=== PATIENT | male | born 1960 | race African-American/Black ===

== ENCOUNTER 2017-12-16 10:57 | Emergency (ER) | payer MEDICAID, OTHER ==
[~2017-12-16] VITALS: Ht 175.3 cm; Wt 90.7 kg
[~2017-12-16 10:57] MED LIST: CLINDAMYCIN HC300 MG ORAL; IBUPROFEN600 MG ORAL; NKM
[2017-12-16] MEDS ORDERED: CLINDAMYCIN HC300 MG ORAL ×2 (11:23→11:40)
[2017-12-16 11:25] VITALS: BP 155/79
--- NOTE | 2017-12-19 00:56 | Emergency Room Report ---
History of Present Illness General Chief Complaint: Skin Rash/Abscess Source: Patient Present Illness HPI Patient presents with complaints of tenderness to the left buttock area Possible insect bite Reports he felt the area 2 days ago Denies any fevers denies any discharge Denies any chest pain or shortness of breath Reports that the last time he had that He was able to get better with antibiotics Denies any rectal pain Allergies: Coded Allergies: PENICILLINS (Verified Allergy, Unknown, 10/23/15) Patient History Past Medical History: see triage record Pertinent Family History: none Reviewed Nursing Documentation: PMH: Agreed; PSxH: Agreed Nursing Documentation-PMH Past Medical History: No Stated History Review of Systems All Other Systems: negative except mentioned in HPI Physical Exam Vital Signs Date Time Temp Pulse Resp B/P (MAP) Pulse Ox O2 Delivery O2 Flow Rate FiO2 12/16/17 11:04 98.0 88 20 155/79 99 Room Air 98.1 Sp02 EP Interpretation: reviewed, normal General Appearance: well appearing, no apparent distress Head: normocephalic, atraumatic Eyes: bilateral eye PERRL, bilateral eye EOMI ENT: normal pharynx Respiratory: lungs clear Cardiovascular #1: regular rate, rhythm, no edema Gastrointestinal: non tender, soft Musculoskeletal: normal inspection Neurologic: alert, oriented x3 Skin: other - Small area approximately 1 cm x 1 cm mild erythema, no obvious blister no fluctuance Lymphatic: no adenopathy Medical Decision Making Diagnostic Impression: Primary Impression: insect bite Additional Impression: cellulitis ER Course Patient presents with early signs of cellulitis Possible ingrown hair versus insect bite, versus other source of infection Patient does not have any area for incision at this time and will have initial conservative trial on antibiotics Last Vital Signs Date Time Temp Pulse Resp B/P (MAP) Pulse Ox O2 Delivery O2 Flow Rate FiO2 12/16/17 11:25 98.1 88 20 155/79 99 Room Air 98.1 Status: improved Disposition: HOME, SELF-CARE Condition: Stable Scripts Clindamycin Hcl (CLINDAMYCIN HCL) 300 Mg Capsule 300 MG ORAL THREE TIMES A DAY, #30 CAP Prov: Jacque John DO 12/16/17 Clindamycin Hcl (CLINDAMYCIN HCL) 300 Mg Capsule 300 MG ORAL THREE TIMES A DAY, #30 CAP Prov: Jacque John DO 12/16/17 Referrals: NOT CHOSEN IPA/MD,REFERRING Patient Instructions: Cellulitis, [id number], Insect Bite, [id number] Additional Instructions: Patient is provided with the discharge instructions notified to follow up with primary doctor in the next 2-3 days otherwise return to the er with any worsening symptoms. Please note that this report is being documented using DRAGON technology. This can lead to erroneous entry secondary to incorrect interpretation by the dictating instrument. Jacque John DO December 19, 2017 00:56
== END 2017-12-16 11:26 | disposition home or self-care (01) ==
LOC: EMR 11:25
DX: S30.860A Insect bite (nonvenomous) of lower back and pelvis, initial encounter (principal); L03.317 Cellulitis of buttock; W57.XXXA Bitten or stung by nonvenomous insect and other nonvenomous arthropods, initial encounter; Y92.9 Unspecified place or not applicable; Z88.0 Allergy status to penicillin
CPT/HCPCS: 99283

== ENCOUNTER 2018-09-04 14:55 | Emergency (ER) | payer MEDICAID ==
[~2018-09-04] VITALS: Ht 175.3 cm; Wt 90.7 kg
[2018-09-04 15:02] VITALS: BP 157/76
--- NOTE | 2018-09-04 15:08 | NUR ---
ED Nurse Note: PT. AAOX4. AMBULATORY. PT. STATED HE HAS A SPIDER BITE ON R ARM
[2018-09-04] MEDS ORDERED: HYDROCORTISONE30 G2 TP (15:25)
[2018-09-04] MEDS ORDERED: BACITRACIN-P28.35 GM TP (15:25)
--- NOTE | 2018-09-04 15:25 | Emergency Room Report ---
History of Present Illness General Chief Complaint: Skin Rash/Abscess Source: Patient Present Illness HPI 58-year-old male patient presents the ER complaining of spider bite on his right forearm. Reports is been present for the past few days. States he did not see the spider. Reports bite is pruritic. Reports it was bigger but has decreased in size. Reports has not applied any medication or taken any medication for relief of symptoms. Denies fever, chest pain, shortness breath, vomiting. Denies history of diabetes. Reports up-to-date on tetanus vaccination. Denies pain or bleeding from site of bite. Allergies: Coded Allergies: PENICILLINS (Verified Allergy, Unknown, 10/23/15) Patient History Past Medical History: see triage record Reviewed Nursing Documentation: PMH: Agreed; PSxH: Agreed Nursing Documentation-PMH Past Medical History: No Stated History Review of Systems All Other Systems: negative except mentioned in HPI Physical Exam Vital Signs Date Time Temp Pulse Resp B/P (MAP) Pulse Ox O2 Delivery O2 Flow Rate FiO2 09/04/18 15:02 98.2 85 16 157/76 97 Room Air Sp02 EP Interpretation: reviewed, normal General Appearance: well appearing, no apparent distress, alert, GCS 15, non- toxic Head: normocephalic, atraumatic Eyes: bilateral eye normal inspection, bilateral eye PERRL ENT: hearing grossly normal, normal pharynx, no angioedema, normal voice, uvula midline, moist mucus membranes Neck: full range of motion Respiratory: lungs clear, normal breath sounds, no rhonchi, no respiratory distress, no accessory muscle use, no wheezing, speaking full sentences Cardiovascular #1: regular rate, rhythm, no edema Psychiatric: mood/affect normal Skin: other - Right forearm: 4-5 mm circular erythematous macule, no surrounding erythema or edema, no target sign, no tenderness to palpation, no palpable mass, no fluctuance or induration, no bite ornelas Medical Decision Making PA Attestation Dr. Fleming is my supervising Physician whom patient management has been discussed with. Diagnostic Impression: Primary Impression: Bug bite ER Course Pt. presents to the ED c/o bug bite. Ddx considered but are not limited to atopic dermatitis, bug bite, urticaria, allergic reaction. Vital signs: are WNL, pt. is afebrile ER COURSE: Physical exam consistent with localized inflammation secondary to likely bug bite. Patient reports symptoms have already improved. Will provide patient with topical hydrocortisone for itching symptoms and topical antibiotic to prevent infection. No surrounding erythema or edema or signs consistent with cellulitis, does not require oral antibiotics at this time. No palpable mass requiring I&D. Do not scratch, apply cool compresses to affected area. Take Claritin during the day and Benadryl at night for itching symptoms. Followup [facility] PCP and request referral to derm. DISCHARGE: -Rx given for hydrocortisone cream. Do not apply to face or skin creases. -Rx given for Bacitracin At this time pt. is stable for d/c to home. Patient resting comfortably, in no acute distress, nontoxic appearing. Care plan and follow up instructions have been discussed with the patient prior to discharge. Patient provided with printed patient care instructions, and any necessary prescriptions. Patient instructed to follow-up with primary care provider in 3 - 5 days. Patient questions asked and answered. Patient reports understanding and agreement to treatment plan. ER precautions given. Patient instructed to return to ER immediately for any new or worsening of symptoms including but not limited to increasing SOB, persistent fever. - Please note that this Emergency Department Report was dictated using [employer] police lieutenant technology software, occasionally this can lead to erroneous entry secondary to interpretation by the dictation equipment. Last Vital Signs Date Time Temp Pulse Resp B/P (MAP) Pulse Ox O2 Delivery O2 Flow Rate FiO2 09/04/18 15:02 98.2 85 16 157/76 97 09/04/18 15:02 Room Air Status: improved Disposition: HOME, SELF-CARE Condition: Stable Scripts Hydrocortisone (Hydrocortisone Cream 2.5%) Y Cream.appl 1 APPLIC TP BID, #28 GM Prov: Ryne Guido 09/04/18 Bacitracin/Polymyxin B Sulfate (BACITRACIN-POLYMYXIN OINTMENT) 28.35 Gm Oint...g. 1 APPLIC TP BID, #28 GM Prov: Ryne Guido 09/04/18 Patient Instructions: Insect Bite, [id number] Additional Instructions: Followup with primary care provider in 3 -5 days. Request referral to dermatology as needed. Do not scratch or itch. Apply cool compresses to affected area. Take medications as directed. Do not apply topical steroid medication to face or skin creases. SE Benadryl drowsiness, do not take prior to drinking, driving, operating heavy machinery. Take Claritin during the day and Benadryl at night for itching symptoms. Patient questions asked and answered. ER precautions given, patient instructed to return to ER immediately for any new or worsening of symptoms. [facility] [place] [facility] Ryne Guido Sep 04, 2018 15:25
[2018-09-04 15:31] VITALS: BP 157/76
--- NOTE | 2018-09-04 15:31 | NUR ---
ED Nurse Note: Pt is ready to be discharged by ERMD. Discharge paper and prescription given, mother verbalized understanding of discharge instruction. AOx4, VSS. Wristband removed. Pt ambulated out with steady gait with all belongings.
== END 2018-09-04 15:31 | disposition home or self-care (01) ==
LOC: EMR 15:20
DX: S50.861A Insect bite (nonvenomous) of right forearm, initial encounter (principal); W57.XXXA Bitten or stung by nonvenomous insect and other nonvenomous arthropods, initial encounter; Y92.9 Unspecified place or not applicable; Z88.0 Allergy status to penicillin
CPT/HCPCS: 99282

== ENCOUNTER 2019-09-15 16:25 | Emergency (ER) | payer MEDICAID ==
[~2019-09-15] VITALS: Ht 175.3 cm; Wt 90.7 kg
[~2019-09-15 16:25] MED LIST changes: +BACITRACIN-P28.35 GM TP; +HYDROCORTISONE30 G2 TP
--- NOTE | 2019-09-15 16:34 | NUR ---
ED Nurse Note: Pt ambulated to ed c/o cough and green thick phlegm with nasal congestion. pt denies use of medications prior to arrival. pt denies pain. pt shows NAD.
[2019-09-15 16:35] VITALS: BP 162/85
--- NOTE | 2019-09-15 16:45 | NUR ---
ED Nurse Note: iv access established. blood and urine collected; sent down to lab. rt at bedside for breathing tx. ekg done at bedside by ertech.
[2019-09-15] MEDS ORDERED: Albuterol/Ipratropium 3ml neb ONE (16:48)
[2019-09-15] MEDS: Albuterol/Ipratropium 3ml neb HHN SCH ×2 (16:57→16:58)
[2019-09-15 17:04] LABS: BASOPHILS % (AUTO) 3.1 % (0.0-2.0); EOSINOPHILS % (AUTO) 3.5 % (0.0-3.0); HEMATOCRIT 48.9 % (42.0-52.0); HEMOGLOBIN 15.6 G/DL (14.2-18.0); LYMPHOCYTES % (AUTO) 36.8 % (20.0-45.0); MEAN CORPUSCULAR VOLUME 91 FL (80-99); MONOCYTES % (AUTO) 8.5 % (1.0-10.0); NEUTROPHILS % (AUTO) 48.1 % (45.0-75.0); PLATELET COUNT 297 K/UL (150-450); RED BLOOD COUNT 5.36 M/UL (4.70-6.10); RED CELL DISTRIBUTION WIDTH 12.6 % (11.6-14.8); WHITE BLOOD COUNT 6.4 K/UL (4.8-10.8)
[2019-09-15 17:45] LABS: ANION GAP 11 mmol/L (5-15); BLOOD UREA NITROGEN 15 mg/dL (7-18); CALCIUM 9.7 MG/DL (8.5-10.1); CARBON DIOXIDE 28 MMOL/L (21-32); CHLORIDE 103 MMOL/L (98-107); CREATININE 1.1 MG/DL (0.55-1.30); POTASSIUM 3.8 MMOL/L (3.5-5.1); SODIUM 142 MMOL/L (136-145)
[2019-09-15 17:54] LABS: ALANINE AMINOTRANSFERASE 35 U/L (12-78); ALBUMIN 4.6 G/DL (3.4-5.0); ALBUMIN/GLOBULIN RATIO 1.1 (1.0-2.7); ALKALINE PHOSPHATASE 53 U/L (46-116); ASPARTATE AMINO TRANSFERASE 22 U/L (15-37); BILIRUBIN,TOTAL 0.3 MG/DL (0.2-1.0)
--- NOTE | 2019-09-15 18:01 | Emergency Room Report ---
History of Present Illness General Chief Complaint: Upper Respiratory Illness Source: Patient Present Illness HPI 59-year-old male with no significant past medical history here complaining of 2 days of cough, posttussive chest pain and shortness of breath. Complains of green phlegm. Denies fever and chill, history of asthma COPD. Denies tobacco smoke. Denies history of hypertension however presents with elevated blood pressure. Denies headache and dizziness at this time. Denies blurry vision, and no unilateral or generalized weakness noted. Patient speaking full sentences no slurred speech noted. Vital signs otherwise are within normal limits. Denies abdominal pain, nausea vomiting, recent travel. Has not taken medication for symptom relief. Allergies: Coded Allergies: PENICILLINS (Verified Allergy, Unknown, 10/23/15) Patient History Past Medical History: see triage record Past Surgical History: unable to obtain Pertinent Family History: none Immunizations: UTD Reviewed Nursing Documentation: PMH: Agreed; PSxH: Agreed Nursing Documentation-PMH Past Medical History: No Stated History Review of Systems All Other Systems: negative except mentioned in HPI Physical Exam Vital Signs Date Time Temp Pulse Resp B/P (MAP) Pulse Ox O2 Delivery O2 Flow Rate FiO2 09/15/19 16:28 98.4 79 21 162/85 (110) 96 Room Air 09/15/19 16:59 21 Sp02 EP Interpretation: reviewed, abnormal - Elevated blood pressure at 162/85 General Appearance: no apparent distress, alert, GCS 15, non-toxic Head: normocephalic, atraumatic Eyes: bilateral eye normal inspection, bilateral eye PERRL ENT: hearing grossly normal, normal pharynx, no angioedema, normal voice Neck: full range of motion, supple, thyroid normal, no meningismus, supple/symm /no masses Respiratory: chest non-tender, lungs clear, normal breath sounds, no rhonchi, no respiratory distress, no retraction, no wheezing, speaking full sentences Cardiovascular #1: regular rate, rhythm, no edema, no murmur Gastrointestinal: normal bowel sounds, non tender, soft, non-distended, no guarding, no rebound Rectal: deferred Musculoskeletal: back normal, no calf tenderness Neurologic: alert, motor strength/tone normal, oriented x3, sensory intact, responsive, speech normal Psychiatric: judgement/insight normal, memory normal, mood/affect normal, no suicidal/homicidal ideation Skin: no rash, warm/dry Lymphatic: no adenopathy Medical Decision Making PA Attestation Diagnosis and treatment plans were reviewed and discussed with my supervising physician Dr. Garces Diagnostic Impression: Primary Impression: Pneumonitis ER Course 59-year-old male with no significant past medical history here complaining of 2 days of cough, posttussive chest pain and shortness of breath. Complains of green phlegm. Denies fever and chill, history of asthma COPD. Denies tobacco smoke. Denies history of hypertension however presents with elevated blood pressure. Denies headache and dizziness at this time. Denies blurry vision, and no unilateral or generalized weakness noted. Patient speaking full sentences no slurred speech noted. Vital signs otherwise are within normal limits. Denies abdominal pain, nausea vomiting, recent travel. Has not taken medication for symptom relief. Ddx considered but are not limited to: AL, Angina, COPD, GERD, bronchitis, pneumonia, pneumonitis Vital signs: are WNL, pt. is afebrile H&PE are most consistent with pneumonitis ORDERS: EKG, Chest XR, BMP, troponin, CBC, CMP, tox screen, azithromycin, guaifenesin, albuterol ED INTERVENTIONS: 3 treatments of albuterol ipratropium nebulizer DISCHARGE: At this time pt. is stable for d/c to home. Will provide printed patient care instructions, and any necessary prescriptions. Care plan and follow up instructions have been discussed with the patient prior to discharge. Patient to follow primary care provider, take medication as directed, avoid using marijuana, if worsening symptoms return to the emergency room EKG Diagnostic Results Rate: normal Rhythm: NSR ST Segments: no acute changes Other Impression No acute ST changes, no QT prolongation noted Chest X-Ray Diagnostic Results Chest X-Ray Diagnostic Results : Chest X-Ray Ordered: Yes # of Views/Limited/Complete: 1 View Indication: Other - Cough EP Interpretation: Yes PA Xray: Interpretation reviewed, by supervising MD, and agrees with findings. Interpretation: no consolidation, no effusion, no pneumothorax Impression: No acute disease Electronically Signed by: Belinda Franklin PA-C Last Vital Signs Date Time Temp Pulse Resp B/P (MAP) Pulse Ox O2 Delivery O2 Flow Rate FiO2 09/15/19 16:59 78 18 100 Room Air 21 76 18 96 09/15/19 16:35 98.4 162/85 Status: improved Disposition: HOME, SELF-CARE Condition: Stable Scripts Albuterol Sulfate (VENTOLIN HFA) 18 Gm Hfa.aer.ad 2 PUFFS INH EVERY 6 HOURS, #18 GM 0 Refills Prov: Belinda Rock 09/15/19 Guaifenesin* (GUAIFENESIN*) 100 Mg/5 Ml Liquid 5 ML ORAL Q6H, #120 ML 0 Refills Prov: Beilnda Rock 09/15/19 Azithromycin* (ZITHROMAX*) 250 Mg Tablet 250 MG ORAL DAILY, #6 TAB 0 Refills Take two tables once daily for 1 day, then one tablet once daily for 4 days. Prov: Belinda Rock 09/15/19 Referrals: [facility],REFERRING (PCP) Patient Instructions: Pneumonitis Additional Instructions: Take medication as directed, follow-up with your primary care provider, increase oral hydration, if worsening symptoms return to the emergency room Belinda Rock Sep 15, 2019 18:01
[2019-09-15] MEDS ORDERED: GUAIFENESI100 MG/5 M ORAL (18:02)
[2019-09-15] MEDS ORDERED: ZITHROMAX250 MG ORAL (18:02)
[2019-09-15] MEDS ORDERED: VENTOLIN HFA18 GM INH (18:02)
[2019-09-15 18:11] VITALS: BP 153/76
--- NOTE | 2019-09-15 18:11 | NUR ---
ER DISCHARGE NOTE: Patient is cleared to be discharged per ERMD, pt is aox4, on room air, with stable vital signs. pt was given dc and prescription instructions, pt was able to verbalize understanding, pt id band and iv site removed without complications. pt is able to ambulate with steady gait. pt took all belongings.
--- NOTE | 2019-11-02 09:57 | Diagnostic Imaging Report ---
Indication: Dyspnea Comparison: None A single view chest radiograph was obtained. Findings: Cardiomediastinal appearance is within normal limits for age. The lungs are clear. Pulmonary vascularity is appropriate. The diaphragmatic contour is smooth and costophrenic angles are sharp. No pleural effusions are identified. The bones are unremarkable. Impression: No acute findings
== END 2019-09-15 18:10 | disposition home or self-care (01) ==
LOC: EMR 17:22
DX: J18.9 Pneumonia, unspecified organism (principal); Z88.0 Allergy status to penicillin
CPT/HCPCS: 36415; 71045; 80053; 80307; 84484; 85025; 93005; Z7502; 99284; J7620

== ENCOUNTER 2019-09-29 15:49 | Emergency (ER) | payer MEDICAID ==
[~2019-09-29] VITALS: Ht 175.3 cm; Wt 99.8 kg
[~2019-09-29 15:49] MED LIST changes: +GUAIFENESI100 MG/5 M ORAL; +VENTOLIN HFA18 GM INH; +ZITHROMAX250 MG ORAL
[2019-09-29 16:23] VITALS: BP 161/79
--- NOTE | 2019-09-29 16:23 | NUR ---
ED Nurse Note: PT CAME IN FOR FF UP. PT C/O CONSISTENT COUGHING WITH LIGHT GREEN PHLEGM, CONGESTION AND CHILLS. SEEN HERE ON 09/15/2019 FOR SAME SYMPTOM.
[2019-09-29 17:31] LABS: APPEARANCE,URINE CLEAR; BILIRUBIN, URINE NEGATIVE (NEGATIVE); COLOR,URINE PALE YELLOW; GLUCOSE, URINE (UA) NEGATIVE (NEGATIVE); KETONES,URINE NEGATIVE (NEGATIVE); LEUKOCYTE ESTERASE ,URINE NEGATIVE (NEGATIVE); NITRITE,URINE NEGATIVE (NEGATIVE); PH,URINE 6 (4.5-8.0); PROTEIN,URINE NEGATIVE (NEGATIVE); UROBILINOGEN,URINE NORMAL MG/DL (0.0-1.0)
[2019-09-29 18:21] VITALS: BP 155/74
--- NOTE | 2019-09-29 18:35 | Emergency Room Report ---
History of Present Illness General Chief Complaint: Upper Respiratory Illness Source: Patient Present Illness HPI 59 YO male presents c/o intermittent cough with mucus that is worse at night and in the am. x 2 weeks. pt. was seen here last week and completed a course of oral abx with cough syrup and Mucinex. pt. reports he continues to have intermittent sx's. He reports foul taste in mouth /odor. He states will have a ST that is 4/10 in severity here and there. Denies nasal congestion. He denies having pain, fever or chills. He denies hx of GERD. Denies SOB, Dyspnea, swelling of the LE's, CP, or palpitations. He denies cardiac hx or hx of CHF. He is also reporting "weird pinching sensation intermittently in the penis x 3 days." denies dysuria, denies abdominal pain or tenderness. He denies penile d/c , suspicion of STI or genital rashes/ lesions. He denies testicular pain or swelling. He denies urinary frequency , urgency or hematuria. Allergies: Coded Allergies: PENICILLINS (Verified Allergy, Unknown, 10/23/15) Patient History Past Medical History: see triage record Past Surgical History: none Pertinent Family History: none Reviewed Nursing Documentation: PMH: Agreed; PSxH: Agreed Nursing Documentation-PMH Past Medical History: No Stated History Review of Systems All Other Systems: negative except mentioned in HPI Physical Exam Vital Signs Date Time Temp Pulse Resp B/P (MAP) Pulse Ox O2 Delivery O2 Flow Rate FiO2 09/29/19 16:17 98.6 89 15 161/79 (106) 98 Room Air Sp02 EP Interpretation: reviewed, normal General Appearance: no apparent distress, alert, GCS 15, non-toxic Head: normocephalic, atraumatic Eyes: bilateral eye normal inspection, bilateral eye PERRL ENT: hearing grossly normal, normal voice Neck: full range of motion Respiratory: chest non-tender, lungs clear, normal breath sounds, no respiratory distress, no wheezing, speaking full sentences Cardiovascular #1: regular rate, rhythm, no edema Gastrointestinal: non tender, soft Genitourinary: normal inspection, no CVA tenderness Musculoskeletal: normal range of motion, gait/station normal, non-tender Neurologic: alert, oriented x3, sensory intact, responsive, speech normal Psychiatric: judgement/insight normal Skin: normal color, normal inspection Medical Decision Making PA Attestation Dr. Jiménez is my supervising Physician whom patient management has been discussed with. Diagnostic Impression: Primary Impression: Chronic coughing Additional Impression: UTI (urinary tract infection) Qualified Codes: N30.00 - Acute cystitis without hematuria ER Course 59 YO male presents c/o intermittent cough with mucus that is worse at night and in the am. x 2 weeks. pt. was seen here last week and completed a course of oral abx with cough syrup and Mucinex. pt. reports he continues to have intermittent sx's. He reports foul taste in mouth /odor. He states will have a ST that is 4/10 in severity here and there. Denies nasal congestion. He denies fever or chills. He denies hx of GERD. Denies SOB, Dyspnea, swelling of the LE's , CP, or palpitations. He denies cardiac hx or hx of CHF. He is also reporting "weird pinching sensation intermittently in the penis x 3 days." denies dysuria , denies abdominal pain or tenderness. He denies penile d/c, suspicion of STI or genital rashes/ lesions. He denies testicular pain or swelling. He denies urinary frequency , urgency or hematuria. Ddx considered but are not limited to URI, pneumonia, PE, strep pharyngitis, meningitis, bronchitis, acid reflux, CHF, postnasal drainage, UTI/urethritis, or candidiasis just to name a few Vital signs: Pt. is afebrile, the remaining VS are WNL H&PE are most consistent with Persistent Cough- no meningeal signs, oropharynx is not involved, no evidence of bacterial infection at this time. -Patient also already finished outpatient course of antibiotics. Will do urinalysis and check for UTI. ORDERS: -UA: Positive for presence of bacteria/ UTI ED INTERVENTIONS: None required at this time. --PT. EDUCATION: Discussed signs and symptoms to indicate viral illness versus bacterial illness. Also, d/w pt. other causes of chronic cough that is worse at night and in the morning with mucus production being postnasal drainage as well as acid reflux. DISCHARGE: At this time pt. is stable for d/c to home. Will provide printed patient care instructions, and any necessary prescriptions. Care plan and follow up instructions have been discussed with the patient prior to discharge. Labs Test 09/29/19 16:56 Urine Color Pale yellow Urine Appearance Clear Urine pH 6 (4.5-8.0) Urine Specific [place] 1.010 (1.005-1.035) Urine Protein Negative (NEGATIVE) Urine Glucose (UA) Negative (NEGATIVE) Urine Ketones Negative (NEGATIVE) Urine Blood Negative (NEGATIVE) Urine Nitrite Negative (NEGATIVE) Urine Bilirubin Negative (NEGATIVE) Urine Urobilinogen Normal MG/DL (0.0-1.0) Urine Leukocyte Esterase Negative (NEGATIVE) Urine RBC 0-2 /HPF (0 - 0) Urine WBC 0-2 /HPF (0 - 0) Urine Squamous Epithelial Cells None /LPF (NONE/OCC) Urine Bacteria Occasional /HPF (NONE) Last Vital Signs Date Time Temp Pulse Resp B/P (MAP) Pulse Ox O2 Delivery O2 Flow Rate FiO2 09/29/19 18:21 98.4 92 19 155/74 100 Room Air Disposition: HOME, SELF-CARE Condition: Stable Scripts Loratadine/Pseudoephedrine (ALAVERT D-12 ALLERGY-SINUS TAB) 1 Each Tab.er.12h 1 TAB ORAL TWICE A DAY for 7 Days, #14 TAB Prov: Capri Reaves 09/29/19 Famotidine* (Pepcid 20mg tablet*) 20 Mg Tablet 20 MG ORAL TWICE A DAY for 10 Days, #20 TAB 0 Refills Prov: Capri Reaves 09/29/19 Phenazopyridine Hcl* (PYRIDIUM*) 200 Mg Tablet 200 MG ORAL THREE TIMES A DAY for 3 Days, #9 TAB 0 Refills Prov: Capri Reaves 09/29/19 Cephalexin* (KEFLEX*) 500 Mg Capsule 500 MG ORAL EVERY 12 HOURS for 7 Days, #14 CAP 0 Refills Prov: Capri Reaves 09/29/19 Patient Instructions: Cough, Adult, [id number], Food Choices for Gastroesophageal Reflux Disease, Adult Additional Instructions: ~ ~ An emergent medical condition has not been identified based on this patients presentation, exam and any necessary testing/imaging. The patient is determined to be stable for outpatient follow-up and management of symptoms by a primary care provider. Take medications as directed. Follow up with a Primary Care Provider in 3-5 days, especially if your symptoms have not resolved --Please review list of primary care clinics, if you do not already have a primary care provider Return sooner to ED if new symptoms occur, or current symptoms become worse. - Please note that this Emergency Department Report was dictated using [employer] indoor environmentalist technology software, occasionally this can lead to erroneous entry secondary to interpretation by the dictation equipment. Capri Reaves Sep 29, 2019 18:35
[2019-09-29] MEDS ORDERED: PHENAZOPYRIDIN200 MG ORAL (18:51)
[2019-09-29] MEDS ORDERED: FAMOTIDINE20 MG ORAL (18:51)
[2019-09-29] MEDS ORDERED: CEPHALEXIN500 MG ORAL (18:51)
[2019-09-29] MEDS ORDERED: ALAVERT D-12 A1 EACH ORAL (18:51)
[2019-09-29 18:57] VITALS: BP 147/79
--- NOTE | 2019-09-29 18:58 | NUR ---
ER DISCHARGE NOTE: Patient is cleared to be discharged per ERMD, pt is aox4, on room air, with stable vital signs. pt was given dc and prescription instructions, pt was able to verbalize understanding, pt id band removed. pt is able to ambulate with steady gait. pt took all belongings.
== END 2019-09-29 19:00 | disposition home or self-care (01) ==
LOC: EMR 18:57
DX: R05 Cough (principal); N30.00 Acute cystitis without hematuria; Z88.0 Allergy status to penicillin
CPT/HCPCS: 81001; Z7502; 99282

== ENCOUNTER 2020-06-21 18:04 | Inpatient (IN) | payer MEDICAID ==
[~2020-06-21] VITALS: Ht 175.3 cm; Wt 86.2 kg
[~2020-06-21 18:04] MED LIST changes: +ALAVERT D-12 A1 EACH ORAL; +CEPHALEXIN500 MG ORAL; +FAMOTIDINE20 MG ORAL; +PHENAZOPYRIDIN200 MG ORAL
[2020-06-21 18:11] VITALS: BP 155/98
--- NOTE | 2020-06-21 18:21 | NUR ---
ED Nurse Note: Patient from home and walked in due abd pain with N/V/D x 5 days with feeling of weakness and dizziness. Denies blood on stool. AAO x4, ambulatory with non labored breathing. Dr Gordon at the bed side.
[2020-06-21 18:40] LABS: APPEARANCE,URINE CLEAR; BILIRUBIN, URINE NEGATIVE (NEGATIVE); GLUCOSE, URINE (UA) NEGATIVE (NEGATIVE); KETONES,URINE 1+ (NEGATIVE); LEUKOCYTE ESTERASE ,URINE NEGATIVE (NEGATIVE); NITRITE,URINE NEGATIVE (NEGATIVE); PH,URINE 5 (4.5-8.0); PROTEIN,URINE 3+ (NEGATIVE); UROBILINOGEN,URINE NORMAL MG/DL (0.0-1.0)
[2020-06-21] MEDS ORDERED: Pantoprazole Inj IVP ONE (18:45)
--- NOTE | 2020-06-21 18:45 | Emergency Room Report ---
History of Present Illness General Chief Complaint: Abdominal Pain Source: Patient Present Illness HPI Patient is a 60-year-old male denies any significant past medical history who presents to the ER complaining of abdominal pain, nausea, vomiting and diarrhea for the past 4 to 5 days. Patient complains of bilateral upper abdominal pain. He complains of nonbloody nonbilious vomitus and nonbloody diarrhea. He denies any chest pain or shortness of breath. He denies any cough. He denies any fever or chills. He denies any recent travel or sick contacts. Allergies: Coded Allergies: PENICILLINS (Verified Allergy, Unknown, 10/23/15) COVID-19 Screening Contact w/high risk pt: No Experienced COVID-19 symptoms?: No COVID-19 Testing performed DIRECTOR OF PROPERTY MANAGEMENT: No Patient History Reviewed Nursing Documentation: PMH: Agreed; PSxH: Agreed Nursing Documentation-PM Past Medical History: No Stated History Review of Systems All Other Systems: negative except mentioned in HPI Physical Exam Vital Signs Date Time Temp Pulse Resp B/P (MAP) Pulse Ox O2 Delivery O2 Flow Rate FiO2 06/21/20 18:11 98.6 100 20 155/98 95 Room Air Sp02 EP Interpretation: reviewed, normal General Appearance: no apparent distress, alert, GCS 15, non-toxic Head: normocephalic, atraumatic Eyes: bilateral eye normal inspection, bilateral eye PERRL ENT: dry mucus membranes Neck: full range of motion, supple/symm/no masses Respiratory: chest non-tender, lungs clear, normal breath sounds, speaking full sentences Cardiovascular #1: tachycardia Gastrointestinal: other - Mild left upper quadrant and right upper quadrant tenderness to palpation with no guarding or rebound Rectal: deferred Genitourinary: no CVA tenderness Musculoskeletal: no calf tenderness, no lower extremity edema 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 Patient is mildly hypoxic. Patient's chest x-ray demonstrates bilateral pulmonary infiltrates. Patient started on azithromycin as well as ceftriaxone. Patient given Decadron 10 mg IV. Patient to be admitted for further treatment and evaluation. Laboratory Tests Test 06/21/20 18:25 06/21/20 18:40 06/21/20 19:13 White Blood Count 6.3 K/UL (4.8-10.8) Red Blood Count 5.18 M/UL (4.70-6.10) Hemoglobin 15.4 G/DL (14.2-18.0) Hematocrit 45.9 % (42.0-52.0) Mean Corpuscular Volume 89 FL (80-99) Mean Corpuscular Hemoglobin 29.7 PG (27.0-31.0) Mean Corpuscular Hemoglobin Concent 33.5 G/DL (32.0-36.0) Red Cell Distribution Width 12.3 % (11.6-14.8) Platelet Count 230 K/UL (150-450) Mean Platelet Volume 6.5 FL (6.5-10.1) Neutrophils (%) (Auto) 72.1 % (45.0-75.0) Lymphocytes (%) (Auto) 14.6 % (20.0-45.0) L Monocytes (%) (Auto) 10.1 % (1.0-10.0) H Eosinophils (%) (Auto) 0.2 % (0.0-3.0) Basophils (%) (Auto) 3.0 % (0.0-2.0) H Prothrombin Time 11.4 SEC (9.30-11.50) Prothrombin Time INR 1.0 (0.9-1.1) Activated Partial Thromboplast Time 32 SEC (23-33) D-Dimer 0.79 mg/L FEU (0.00-0.49) H Urine Color Yellow Urine Appearance Clear Urine pH 5 (4.5-8.0) Urine Specific [place] 1.020 (1.005-1.035) Urine Protein 3+ (NEGATIVE) H Urine Glucose (UA) Negative (NEGATIVE) Urine Ketones 1+ (NEGATIVE) H Urine Blood 1+ (NEGATIVE) H Urine Nitrite Negative (NEGATIVE) Urine Bilirubin Negative (NEGATIVE) Urine Urobilinogen Normal MG/DL (0.0-1.0) Urine Leukocyte Esterase Negative (NEGATIVE) Urine RBC 2-4 /HPF (0 - 0) H Urine WBC 0-2 /HPF (0 - 0) Urine Squamous Epithelial Cells Occasional /LPF Urine Bacteria Few /HPF (NONE) Urine Mucus Moderate /LPF (NONE/OCC) H Sodium Level 136 MMOL/L (136-145) Potassium Level 4.2 MMOL/L (3.5-5.1) Chloride Level 100 MMOL/L (98-107) Carbon Dioxide Level 28 MMOL/L (21-32) Anion Gap 8 mmol/L (5-15) Blood Urea Nitrogen 14 mg/dL (7-18) Creatinine 1.6 MG/DL (0.55-1.30) H Estimated Glomerular Filtration Rate 53.6 mL/min (>60) Glucose Level 139 MG/DL (74-106) H Calcium Level 8.6 MG/DL (8.5-10.1) Magnesium Level 2.3 MG/DL (1.8-2.4) Ferritin 515 NG/ML (8-388) H Total Bilirubin 0.5 MG/DL (0.2-1.0) Aspartate Amino Transferase (AST) 41 U/L (15-37) H Alanine Aminotransferase (ALT) 56 U/L (12-78) Alkaline Phosphatase 54 U/L (46-116) Lactate Dehydrogenase 553 U/L (81-234) H Troponin I 0.000 ng/mL (0.000-0.056) C-Reactive Protein, Quantitative 13.1 mg/dL (0.00-0.90) H Pro-B-Type Natriuretic Peptide 51 pg/mL (0-125) Total Protein 8.4 G/DL (6.4-8.2) H Albumin 3.6 G/DL (3.4-5.0) Globulin 4.8 g/dL Albumin/Globulin Ratio 0.8 (1.0-2.7) L Lipase 121 U/L (73-393) Urine Opiates Screen Negative (NEGATIVE) Urine Barbiturates Screen Negative (NEGATIVE) Phencyclidine (PCP) Screen Negative (NEGATIVE) Urine Amphetamines Screen Negative (NEGATIVE) Urine Benzodiazepines Screen Negative (NEGATIVE) Urine Cocaine Screen Negative (NEGATIVE) Urine Marijuana (THC) Screen Positive (NEGATIVE) H Lactic Acid Level 1.50 mmol/L (0.4-2.0) Arterial Blood pH 7.479 (7.350-7.450) Arterial Blood Partial Pressure CO2 29.6 mmHg (35.0-45.0) L Arterial Blood Partial Pressure O2 72.6 mmHg (75.0-100.0) L Arterial Blood HCO3 21.5 mmol/L (22.0-26.0) L Arterial Blood Oxygen Saturation 94.7 % (95-100) L Arterial Blood Base Excess -0.9 (-2-2) Brayden Test Positive Microbiology Date/Time Source Procedure Growth Status 06/21/20 15:49 Nasopharynx SARS-CoV-2 RdRp Gene Assay - Final Complete EKG Diagnostic Results Troponin ordered: Yes When was troponin ordered?: Jun 21, 2020 EKG Time: 18:35 EP Interpretation: Tawana Gordon MD Rate: normal - 95 bpm Rhythm: NSR ST Segments: no acute changes ASA given to the pt in ED: No Rhythm Strip Diag. Results Rhythm Strip Time: 20:45 EP Interpretation: yes - Tawana Gordon MD Rate: 94 bpm Rhythm: NSR, no PVC's, no ectopy Chest X-Ray Diagnostic Results Chest X-Ray Diagnostic Results : Chest X-Ray Ordered: Yes # of Views/Limited/Complete: 1 View Indication: Chest Pain EP Interpretation: Yes Interpretation: no effusion, no pneumothorax, other - biLateral patchy infiltrates Impression: Other - Pneumonia Last Vital Signs Date Time Temp Pulse Resp B/P (MAP) Pulse Ox O2 Delivery O2 Flow Rate FiO2 06/21/20 18:21 100 20 Room Air 06/21/20 18:11 98.6 155/98 (117) 95 Disposition: ADMITTED INPATIENT - telemetry Condition: Critical Additional Instructions: Please note that this report is being documented using [employer] technology. This can lead to erroneous entry secondary to incorrect interpretation by the dictating instrument. Tawana Gordon M.D. Jun 21, 2020 18:45
[2020-06-21 18:51] LABS: COLOR,URINE YELLOW; EOSINOPHILS % (AUTO) 0.2 % (0.0-3.0); HEMATOCRIT 45.9 % (42.0-52.0); HEMOGLOBIN 15.4 G/DL (14.2-18.0); LYMPHOCYTES % (AUTO) 14.6 % (20.0-45.0); MEAN CORPUSCULAR VOLUME 89 FL (80-99); MONOCYTES % (AUTO) 10.1 % (1.0-10.0); NEUTROPHILS % (AUTO) 72.1 % (45.0-75.0); PLATELET COUNT 230 K/UL (150-450); RED BLOOD COUNT 5.18 M/UL (4.70-6.10); RED CELL DISTRIBUTION WIDTH 12.3 % (11.6-14.8); WHITE BLOOD COUNT 6.3 K/UL (4.8-10.8)
[2020-06-21] MEDS ORDERED: Azithromycin 500 MG in NS 275 ML IV ONE (19:00)
[2020-06-21] MEDS ORDERED: cefTRIAXone 1 GM in NS 55 ML IVPB ONE (19:00)
[2020-06-21 19:03] LABS: CALCIUM 8.6 MG/DL (8.5-10.1); CREATININE 1.6 MG/DL (0.55-1.30); POTASSIUM 4.2 MMOL/L (3.5-5.1)
--- NOTE | 2020-06-21 19:07 | Diagnostic Imaging Report ---
EXAM: CT Abdomen and Pelvis Without Intravenous Contrast CLINICAL HISTORY: PAIN Notes: Patient walked in to ER c/o abd pain, vomiting x 5 days, stated feel so weak and dizzy TECHNIQUE: Axial computed tomography images of the abdomen and pelvis without intravenous contrast. CTDI is 11.0 mGy and DLP is 595.0 mGy-cm. One or more of the following dose reduction techniques were used: automated exposure control, adjustment of the mA and/or kV according to patient size, use of iterative reconstruction technique. COMPARISON: No relevant prior studies available. FINDINGS: Evaluation of the vasculature and soft tissues limited on this noncontrast exam. Lung bases: Patchy ground-glass opacities are identified throughout the bilateral lower lungs. No pleural effusions. ABDOMEN: Liver: Unremarkable noncontrast appearance. Gallbladder and bile ducts: Contracted gallbladder containing calcified gallstones. No pericholecystic inflammatory changes. Evaluation of the biliary tree limited on this noncontrast exam without definite biliary obstruction Pancreas: Mild peripancreatic inflammatory changes are identified (4: 49, pérez images). No organized fluid collection identified. The pancreatic duct is not dilated. Spleen: Unremarkable. No splenomegaly. Adrenals: Unremarkable. No mass. Kidneys and ureters: No obstructing stones. 54 mm left renal cyst. Probable Bilateral peripelvic cysts. No definite hydronephrosis. No hydroureter. Stomach and bowel: Unremarkable. No obstruction. No mucosal thickening. PELVIS: Appendix: No findings to suggest acute appendicitis. Bladder: Decompressed, limiting evaluation of the lumen. Reproductive: Unremarkable as visualized. ABDOMEN and PELVIS: Intraperitoneal space: Unremarkable. No free air. No significant fluid collection. Bones/joints: Left sacroiliac joint ankylosis. Soft tissues: Unremarkable. Vasculature: No abdominal aortic aneurysm. Lymph nodes: Unremarkable. No enlarged lymph nodes. IMPRESSION: 1. Patchy ground-glass opacities identified within the visualized lung bases. Findings are consistent with an acute inflammatory/infectious process, including COVID-19 infection. Correlate. 2. Mild peripancreatic inflammatory changes which can be seen with pancreatitis. Correlate with amylase and lipase levels. No organized fluid collection identified. 3. Contracted gallbladder containing calcified gallstones.
--- NOTE | 2020-06-21 19:11 | NUR ---
HAND-OFF: Report given to leo BRAN.
--- NOTE | 2020-06-21 19:15 | NUR ---
ED Nurse Note: Received reprot from Ayla BRAN. Pt AAOx4, verbally responsive. No SOB, on room air. Call light within reach. Covid isolation precaution is in place.
[2020-06-21 19:17] LABS: ALBUMIN 3.6 G/DL (3.4-5.0); ALBUMIN/GLOBULIN RATIO 0.8 (1.0-2.7); BILIRUBIN,TOTAL 0.5 MG/DL (0.2-1.0)
[2020-06-21] MEDS ORDERED: dexAMETHasone 10mg/ml Inj IV ONE (20:15)
[2020-06-21 20:34] VITALS: BP 134/66
--- NOTE | 2020-06-21 21:40 | NUR ---
ED Nurse Note: Reprot given to Peggy BRAN.
--- NOTE | 2020-06-21 21:50 | NUR ---
TRANSFER TO FLOOR: Patient transferred to Telemetry via gurney by 1 RN adn 1 orthopedic technician. Pt AAOx4, verbally responsive. No SOB, on room air. IV line on left AC 20g patent and intact. No skin issues. All belongings sent with the patient.
--- NOTE | 2020-06-21 22:00 | NUR ---
NURSE NOTES: RECEIVED REPORT FROM YINA OCAMPO FROM ED. ADMITTED PT TO TELEMETRY ROOM 204-2. PT PLACED ON ISOLATION DUE TO COVID POSITIVE. PT TRANSFERRED VIA GURNEY. PT ALERT/ORIENTED X4, ABLE TO MAKE NEEDS KNOWN. NO RESP DISTRESS NOTED. PT AMBULATED TO BED WITH STEADY GAIT. CARDICA MONITOR PLACED. BODY CHECK DONE & BELONGINGS CHECK DONE. LEFT AC [address] &PATENT SALINE LOCKED. ORIENTED PT TO BED UNIT & ROOM. NO C/O PAIN, DIZZINESS, N/V AT THIS TIME. BED IN LOW POSITION & LOCKED. SIDE RAILS UP X2. BED ALARM ON. CALL LIGHT WITH IN REACH. EXPLAINED TO PAT USE CALL LIGHT ASSISTANCE IS NEEDED. DR. LOPEZ INPUTTED ORDERS WILL NOTE & CARRY OUT.
[2020-06-21] MEDS ORDERED: Milk of Magnesia 30ml Ud ORAL PRN (22:15)
[2020-06-21 22:20] VITALS: BP 138/66
[2020-06-21] MEDS: Enoxaparin 40mg Inj SUBQ SCH (23:10)
[2020-06-21] MEDS ORDERED: Enoxaparin 40mg Inj SUBQ SCH (23:15)
[2020-06-22] VITALS: BP 145/86
[2020-06-22 04:00] VITALS: BP 121/63
[2020-06-22 06:04] LABS: BASOPHILS % (AUTO) 0.1 % (0.0-2.0); HEMOGLOBIN 14.8 G/DL (14.2-18.0); MEAN CORPUSCULAR VOLUME 90 FL (80-99); NEUTROPHILS % (AUTO) 82.7 % (45.0-75.0); PLATELET COUNT 223 K/UL (150-450); RED BLOOD COUNT 4.98 M/UL (4.70-6.10); RED CELL DISTRIBUTION WIDTH 12.3 % (11.6-14.8); WHITE BLOOD COUNT 5.5 K/UL (4.8-10.8)
[2020-06-22] MEDS: NovoLOG Insulin Flexpen SUBQ SCH ×3 (06:23→17:05)
[2020-06-22 06:48] LABS: CHOLESTEROL 130 MG/DL (< 200); HDL CHOLESTEROL 43 MG/DL (40-60); TRIGLYCERIDES 57 MG/DL (30-150)
--- NOTE | 2020-06-22 07:30 | NUR ---
NURSE HAND-OFF REPORT: Important Events on Shift:ADMITTED FROM ED FOR COVID POSITIVE PNU Patient Status: STABLE Diet: CLEAR LIQUID Pending Orders: [] Pending Results/Labs:[] Pending MD notification:[] Latest Vital Signs: Temperature 97.5 , Pulse 72 , B/P 121 /63 , Respiratory Rate 20 , O2 SAT 98 , Room Air, O2 Flow Rate . Vital Sign Comment: [] EKG Rhythm: Sinus Rhythm Rhythm change?: N MD Notified?: - MD Response: Latest Mcmillan Fall Score: 20 Fall Risk: Low Risk Safety Measures: Call light Within Reach, Bed Alarm Zone 1, Side Rails Side Rails x2, Bed position Low and Locked. Fall Precautions: Yellow Socks Yellow Gown Door Sign Patient Fall Education Report given to YINA DUDLEY.
--- NOTE | 2020-06-22 07:45 | NUR ---
NURSE NOTES: Patient was seen in bed stable with no complaints of shortness of breath or difficulty breathing. Patient was alert and oriented x4, bed was set to lowest position, bed alarm was activated and side rails were activated x3.
[2020-06-22 08:00] VITALS: BP 132/68
--- NOTE | 2020-06-22 08:44 | NUR ---
CASE MANAGEMENT:REVIEW 60YR OLD MALE WALKED INTO ER CC: ABD PAIN. VOMITING X5 DAYS. WEAK AND DIZZINESS SI:COVID PNA. HYPOXIA 98.6 100 20 155/98 95% ON RA PH+7.49 PCO2-29.6 PO2-72.6 HCO3-21.5 CR+1.6 CRP+13.1 URINE(+) THC IS: 1L NS BOLUS IV ZOFRAN IV PROTONIX IV ROCEPHIN IV AZITHROMYCIN IV DECADRON CT ABD/PELVIS CXR BLOOD CX COVID SWAB (+) : TO TELEMETRY DCP: FROM HOME
--- NOTE | 2020-06-22 09:23 | Consultation ---
History of Present Illness General Date patient seen: Jun 22, 2020 Time patient seen: 08:00 Chief Complaint: COVID 19 PNA Referring physician: Dr Cisse Reason for Consultation: COVID 19 infection Present Illness HPI 60 years old male, without significant past medical history, presented to emergency department complaining of nausea, nonbloody nonbilious vomiting and upper abdominal pain along with nonbloody diarrhea for the past 4 to 5 days. He denies chest pain or shortness of breath. He denied fever and chills. He denied cough or congestion. He denied recent travel or sick contacts. Upon evaluation Pulsoxymeter was stable on room air patient was afebrile blood pressure was elevated 155/98 rapid COVID-19 was positive. Laboratory work-up revealed no leukocytosis stable hemoglobin hematocrit and platelet count. Troponin negative, proBNP 51. EKG reveals sinus rhythm no acute ischemic changes. BUN 14, creatinine 1.6. Glucose 129. AST 41, ALT 56. Urine toxicology screen was positive for marijuana. Urinalysis revealed +3 protein no evidence of urinary tract infection ABG was stable on room air inflammatory marker revealed ferritin 515, LDH 553, CRP 13.1, D-dimer 0.79. CT of the abdomen and pelvis revealed patchy groundglass opacity within the lung bases. Mild peripancreatic inflammatory changes within the pancreas no organized fluid collection contracted gallbladder containing calcified gallstones. Chest x-ray not uploaded. But per ED report shows bilateral pulmonary infil trates. 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, no smoking tobacco, no illicit drug use, ETOH socially Family history : noncontributory Residence: home Allergies: Coded Allergies: PENICILLINS (Verified Allergy, Unknown, 10/23/15) Medication History No Active Prescriptions or Reported Meds Patient History History Provided By: Patient Healthcare decision maker Resuscitation status Full code Advanced Directive on File Review of Systems Constitutional: Reports: no symptoms Eye: Reports: no symptoms Respiratory: Reports: no symptoms Cardiovascular: Reports: no symptoms Gastrointestinal: Reports: see HPI Genitourinary: Reports: no symptoms Musculoskeletal: Reports: no symptoms Skin: Reports: no symptoms Psychiatric: Reports: no symptoms Neurological: Reports: no symptoms Endocrine: Reports: no symptoms Hematologic/Lymphatic: Reports: no symptoms Physical Exam General Appearance: WD/WN, no apparent distress, alert Lines, tubes and drains: peripheral HEENT: normocephalic, atraumatic, anicteric, mucous membranes moist, PERRL Neck: non-tender, normal alignment, supple, normal inspection Respiratory/Chest: lungs clear, no respiratory distress, no accessory muscle use Cardiovascular/Chest: normal peripheral pulses, normal rate, regular rhythm Abdomen: normal bowel sounds, non tender, soft Extremities: non-tender, no calf tenderness 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, no motor/sensory deficits, alert, oriented x 3, responsive Musculoskeletal: normal muscle bulk Last 24 Hour Vital Signs Date Time Temp Pulse Resp B/P (MAP) Pulse Ox O2 Delivery O2 Flow Rate FiO2 06/22/20 08:00 96.5 73 19 132/68 (89) 96 06/22/20 04:00 75 06/22/20 04:00 97.5 72 20 121/63 (82) 98 06/22/20 00:00 85 06/22/20 00:00 97.8 90 20 145/86 (105) 97 06/21/20 22:20 97.2 20 138/66 (90) 95 06/21/20 21:50 98.5 89 21 145/75 100 Room Air 06/21/20 20:34 98.6 96 22 134/66 99 Room Air 06/21/20 18:21 100 20 Room Air 06/21/20 18:11 98.6 100 20 155/98 (117) 95 Room Air 06/21/20 18:11 98.6 100 20 155/98 95 Room Air Intake and Output 06/21/20 06/22/20 19:00 07:00 Intake Total 2580 ml Output Total 600 ml Balance 1980 ml Intake Oral 250 ml IV Total 2330 ml Output Urine Total 600 ml # Voids 2 Laboratory Tests Test 06/21/20 18:25 06/21/20 18:40 06/21/20 19:13 06/22/20 04:40 White Blood Count 6.3 K/UL (4.8-10.8) 5.5 K/UL (4.8-10.8) Red Blood Count 5.18 M/UL (4.70-6.10) 4.98 M/UL (4.70-6.10) Hemoglobin 15.4 G/DL (14.2-18.0) 14.8 G/DL (14.2-18.0) Hematocrit 45.9 % (42.0-52.0) 45.0 % (42.0-52.0) Mean Corpuscular Volume 89 FL (80-99) 90 FL (80-99) Mean Corpuscular Hemoglobin 29.7 PG (27.0-31.0) 29.8 PG (27.0-31.0) Mean Corpuscular Hemoglobin Concent 33.5 G/DL (32.0-36.0) 32.9 G/DL (32.0-36.0) Red Cell Distribution Width 12.3 % (11.6-14.8) 12.3 % (11.6-14.8) Platelet Count 230 K/UL (150-450) 223 K/UL (150-450) Mean Platelet Volume 6.5 FL (6.5-10.1) 6.0 FL (6.5-10.1) L Neutrophils (%) (Auto) 72.1 % (45.0-75.0) 82.7 % (45.0-75.0) H Lymphocytes (%) (Auto) 14.6 % (20.0-45.0) L 12.0 % (20.0-45.0) L Monocytes (%) (Auto) 10.1 % (1.0-10.0) H 5.0 % (1.0-10.0) Eosinophils (%) (Auto) 0.2 % (0.0-3.0) 0.0 % (0.0-3.0) Basophils (%) (Auto) 3.0 % (0.0-2.0) H 0.1 % (0.0-2.0) Prothrombin Time 11.4 SEC (9.30-11.50) Prothromb Time International Ratio 1.0 (0.9-1.1) Activated Partial Thromboplast Time 32 SEC (23-33) D-Dimer 0.79 mg/L FEU (0.00-0.49) H Urine Color Yellow Urine Appearance Clear Urine pH 5 (4.5-8.0) Urine Specific [place] 1.020 (1.005-1.035) Urine Protein 3+ (NEGATIVE) H Urine Glucose (UA) Negative (NEGATIVE) Urine Ketones 1+ (NEGATIVE) H Urine Blood 1+ (NEGATIVE) H Urine Nitrite Negative (NEGATIVE) Urine Bilirubin Negative (NEGATIVE) Urine Urobilinogen Normal MG/DL (0.0-1.0) Urine Leukocyte Esterase Negative (NEGATIVE) Urine RBC 2-4 /HPF (0 - 0) H Urine WBC 0-2 /HPF (0 - 0) Urine Squamous Epithelial Cells Occasional /LPF Urine Bacteria Few /HPF (NONE) Urine Mucus Moderate /LPF (NONE/OCC) H Sodium Level 136 MMOL/L (136-145) Potassium Level 4.2 MMOL/L (3.5-5.1) Chloride Level 100 MMOL/L (98-107) Carbon Dioxide Level 28 MMOL/L (21-32) Anion Gap 8 mmol/L (5-15) Blood Urea Nitrogen 14 mg/dL (7-18) Creatinine 1.6 MG/DL (0.55-1.30) H Estimat Glomerular Filtration Rate 53.6 mL/min (>60) Glucose Level 139 MG/DL (74-106) H Calcium Level 8.6 MG/DL (8.5-10.1) Magnesium Level 2.3 MG/DL (1.8-2.4) Ferritin 515 NG/ML (8-388) H Total Bilirubin 0.5 MG/DL (0.2-1.0) Aspartate Amino Transf (AST/SGOT) 41 U/L (15-37) H Alanine Aminotransferase (ALT/SGPT) 56 U/L (12-78) Alkaline Phosphatase 54 U/L (46-116) Lactate Dehydrogenase 553 U/L (81-234) H Troponin I 0.000 ng/mL (0.000-0.056) C-Reactive Protein, Quantitative 13.1 mg/dL (0.00-0.90) H Pro-B-Type Natriuretic Peptide 51 pg/mL (0-125) Total Protein 8.4 G/DL (6.4-8.2) H Albumin 3.6 G/DL (3.4-5.0) Globulin 4.8 g/dL Albumin/Globulin Ratio 0.8 (1.0-2.7) L Lipase 121 U/L (73-393) Urine Opiates Screen Negative (NEGATIVE) Urine Barbiturates Screen Negative (NEGATIVE) Phencyclidine (PCP) Screen Negative (NEGATIVE) Urine Amphetamines Screen Negative (NEGATIVE) Urine Benzodiazepines Screen Negative (NEGATIVE) Urine Cocaine Screen Negative (NEGATIVE) Urine Marijuana (THC) Screen Positive (NEGATIVE) H Lactic Acid Level 1.50 mmol/L (0.4-2.0) Arterial Blood pH 7.479 (7.350-7.450) Arterial Blood Partial Pressure CO2 29.6 mmHg (35.0-45.0) L Arterial Blood Partial Pressure O2 72.6 mmHg (75.0-100.0) L Arterial Blood HCO3 21.5 mmol/L (22.0-26.0) L Arterial Blood Oxygen Saturation 94.7 % (95-100) L Arterial Blood Base Excess -0.9 (-2-2) Brayden Test Positive Triglycerides Level 57 MG/DL (30-150) Cholesterol Level 130 MG/DL (< 200) LDL Cholesterol 72 mg/dL (<100) HDL Cholesterol 43 MG/DL (40-60) Cholesterol/HDL Ratio 3.0 (3.3-4.4) L Thyroid Stimulating Hormone (TSH) 0.410 uiU/mL (0.358-3.740) Test 06/22/20 06:14 POC Whole Blood Glucose 189 MG/DL (74-106) H Microbiology Date/Time Source Procedure Growth Status 06/21/20 15:49 Nasopharynx SARS-CoV-2 RdRp Gene Assay - Final Complete Height (Feet): 5 Height (Inches): 9.00 Weight (Pounds): 190 Medications Current Medications Medications (Trade) Dose Ordered Sig/Jake Route PRN Reason Start Time Stop Time Status Last Admin Dose Admin Acetaminophen (Tylenol) 650 mg Q4H PRN ORAL Mild Pain (Pain Scale 1-3) 06/21/20 22:15 07/21/20 22:14 Acetaminophen (Tylenol) 650 mg Q4H PRN ORAL Temp >100.5 06/21/20 22:15 07/21/20 22:14 Dexamethasone Sodium Phosphate (Decadron 10mg/ ml Inj) 6 mg Q24H IV 06/22/20 20:00 09/20/20 19:59 Dextrose (Dextrose 50%) 25 ml Q30M PRN IV Hypoglycemia 06/22/20 00:30 09/20/20 00:29 Dextrose (Dextrose 50%) 50 ml Q30M PRN IV Hypoglycemia 06/22/20 00:30 09/20/20 00:29 Enoxaparin Sodium (Lovenox) 40 mg Q24H SUBQ 06/22/20 00:00 09/20/20 00:00 06/21/20 23:10 Famotidine (Pepcid) 20 mg BID ORAL 06/22/20 09:00 09/20/20 08:59 Insulin Aspart (NovoLOG) BEFORE MEALS SUBQ 06/22/20 06:30 09/20/20 06:29 06/22/20 06:23 Magnesium Hydroxide (Mom) 30 ml HSPRN PRN ORAL Constipation 06/21/20 22:15 07/21/20 22:14 Ondansetron HCl (Zofran) 4 mg Q6H PRN IVP Nausea & Vomiting 06/21/20 22:15 07/21/20 22:14 Sodium Chloride 1,000 ml @ 75 mls/hr [id number] IVLG 06/21/20 23:15 07/21/20 23:14 06/21/20 23:12 Assessment/Plan Assessment/Plan: ASSESSMENT COVID 19 infection Possible PNA Abdominal pain with n/v and diarrhea -possible due to COVID infection ERNST Proteinuria Hyperglycemia Cholelithiasics-per imaging PLAN OF CARE tele isolation agree with steroids given results of CT A/P start Azithromycin and ceftriaxone ID eval pending pulse ox remains stable on RA, titrate to keep sat > 90% MDI Proventil prn monitor respiratory status, if becomes hypoxic will qualify for Remdesivivr a/c with Lovenox vit C and zinc fup with inflammatory markers, IL6 in am fup with CXR check HgA1c -? diabetic monitor renal parameters, lytes lipase WNL, AST minimally elevated CT A/P noted, doubt infectious process abd pain with n/v/diarrhea ( which subsided) possibly due to COVID infection and possible marijuana use supportive care pain management GI prophylaxis Thank you for a consult! case discussed and evaluated by supervising physician Tasia Friedman NP Jun 22, 2020 09:23
[2020-06-22] MEDS ORDERED: Albuterol 90mcg Inhaler 8gm INH PRN (09:45)
--- NOTE | 2020-06-22 11:00 | History and Physical Report ---
DATE OF ADMISSION: 06/21/2020 CHIEF COMPLAINT/REASON FOR HOSPITALIZATION: The patient admitted with COVID-19 positive and abdominal complaints. HISTORY OF PRESENT ILLNESS: The patient apparently has had about a 5-day history of some epigastric pain, nausea, vomiting, and diarrhea, with the last episode of nausea, vomiting and diarrhea was apparently two days prior to this admission. He has a mild cough, no shortness of breath. He had imaging in the emergency room, which showed ground-glass opacities in the visualized lung bases consistent with COVID and rapid COVID test was negative. There was mild peripancreatic inflammation and contracted gallbladder containing calcified gallstones. The patient has generally been in good health. No history of chronic abdominal pains or any systemic disease. PAST SURGICAL HISTORY: Surgeries are none. ALLERGIES: Penicillin. HABITS: He is a nonsmoker. Alcohol, occasional. Drugs, none. 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 SYSTEM REVIEW: HEAD, EYES, EARS, NOSE, AND THROAT: Vision and hearing is good. ENDOCRINE: No diabetes or thyroid disease. PULMONARY: No asthma, TB, or chronic cough. CARDIAC: No angina, myocardial infarction, or palpitations. GASTROINTESTINAL: See history of present illness. GENITOURINARY: No dysuria, hematuria, or kidney stones. NEUROLOGIC: No CVA, syncope, or seizures. PHYSICAL EXAMINATION: GENERAL: The patient is alert man, in no acute distress. BMI 28.1. VITAL SIGNS: Temperature 96.5, pulse 73, respirations 19, blood pressure 132/68. HEAD, EYES, EARS, NOSE, AND THROAT: Sclerae are nonicteric. Ocular motions intact in all directions. Oral mucosa moist. NECK: No adenopathy or thyroid enlargement. LUNGS: Clear. HEART: Regular rhythm. I hear no murmur. ABDOMEN: Soft without organomegaly or tenderness. EXTREMITIES: No edema, cyanosis, or clubbing. NEUROLOGIC: He is alert and oriented. Cranial nerves are intact. LABORATORY DATA: Admission labs show normal electrolytes. Creatinine 1.6. Glucose 139. AST 41, ALT 56, alkaline phosphatase 54. Drug screen is positive for marijuana. White count 6.3, hemoglobin 15.4. IMPRESSION: 1. COVID-19 positive. 2. GI symptoms, likely secondary to COVID and mild elevation of liver enzymes and gallstones. I will get an ultrasound of the gallbladder. PLAN: As above. He was started on steroids in the emergency room, but I do not think he is really hypoxic. I think that can be stopped for now and we will observe his condition. Alphonso Cisse M.D. DR: MELVIN JOB#: [id number] CC:
[2020-06-22 12:00] VITALS: BP 130/71
--- NOTE | 2020-06-22 12:41 | NUR ---
NURSE NOTES: The patient was seen sitting in bed eating lunch. The patient was alert and oriented x4 with no chest pain, chest tightness or difficulty breathing. The patient stated, "I am feeling so much better". The patients blood sugar was assessed and was elevated at 157 mg/dl. The blood sugar was corrected per doctors orders with 2 units of NovoLog. The patients bed was set to lowest position, bed alarm was set to zone 1 and the bed rails were placed x 2.
--- NOTE | 2020-06-22 15:53 | Infectious Diseases Prog Note ---
Assessment/Plan Assessment/Plan Full consult dictated: A) 1) covid-19 virus infection, pna, ? cap 2) GI symptoms 3) pmh noted 4) allergies - pcn P) 1) ceftriaxone and azithromycin 2) no indication for steroids or remdesivir 3) monitor for hypoxia 4) thank you Subjective Allergies: Coded Allergies: PENICILLINS (Verified Allergy, Unknown, 10/23/15) Objective Last 24 Hour Vital Signs Date Time Temp Pulse Resp B/P (MAP) Pulse Ox O2 Delivery O2 Flow Rate FiO2 06/22/20 12:00 76 06/22/20 12:00 98.1 83 20 130/71 (90) 98 06/22/20 09:00 Room Air 06/22/20 08:00 96.5 73 19 132/68 (89) 96 06/22/20 08:00 77 06/22/20 04:00 75 06/22/20 04:00 97.5 72 20 121/63 (82) 98 06/22/20 00:00 85 06/22/20 00:00 97.8 90 20 145/86 (105) 97 06/21/20 22:20 97.2 20 138/66 (90) 95 06/21/20 21:50 98.5 89 21 145/75 100 Room Air 06/21/20 20:34 98.6 96 22 134/66 99 Room Air 06/21/20 18:21 100 20 Room Air 06/21/20 18:11 98.6 100 20 155/98 (117) 95 Room Air 06/21/20 18:11 98.6 100 20 155/98 95 Room Air Height (Feet): 5 Height (Inches): 9.00 Weight (Pounds): 190 Microbiology Date/Time Source Procedure Growth Status 06/21/20 15:49 Nasopharynx SARS-CoV-2 RdRp Gene Assay - Final Complete Laboratory Tests Test 06/21/20 18:25 06/21/20 18:40 06/21/20 19:13 06/22/20 04:40 White Blood Count 6.3 K/UL (4.8-10.8) 5.5 K/UL (4.8-10.8) Red Blood Count 5.18 M/UL (4.70-6.10) 4.98 M/UL (4.70-6.10) Hemoglobin 15.4 G/DL (14.2-18.0) 14.8 G/DL (14.2-18.0) Hematocrit 45.9 % (42.0-52.0) 45.0 % (42.0-52.0) Mean Corpuscular Volume 89 FL (80-99) 90 FL (80-99) Mean Corpuscular Hemoglobin 29.7 PG (27.0-31.0) 29.8 PG (27.0-31.0) Mean Corpuscular Hemoglobin Concent 33.5 G/DL (32.0-36.0) 32.9 G/DL (32.0-36.0) Red Cell Distribution Width 12.3 % (11.6-14.8) 12.3 % (11.6-14.8) Platelet Count 230 K/UL (150-450) 223 K/UL (150-450) Mean Platelet Volume 6.5 FL (6.5-10.1) 6.0 FL (6.5-10.1) L Neutrophils (%) (Auto) 72.1 % (45.0-75.0) 82.7 % (45.0-75.0) H Lymphocytes (%) (Auto) 14.6 % (20.0-45.0) L 12.0 % (20.0-45.0) L Monocytes (%) (Auto) 10.1 % (1.0-10.0) H 5.0 % (1.0-10.0) Eosinophils (%) (Auto) 0.2 % (0.0-3.0) 0.0 % (0.0-3.0) Basophils (%) (Auto) 3.0 % (0.0-2.0) H 0.1 % (0.0-2.0) Prothrombin Time 11.4 SEC (9.30-11.50) Prothromb Time International Ratio 1.0 (0.9-1.1) Activated Partial Thromboplast Time 32 SEC (23-33) D-Dimer 0.79 mg/L FEU (0.00-0.49) H Urine Color Yellow Urine Appearance Clear Urine pH 5 (4.5-8.0) Urine Specific [place] 1.020 (1.005-1.035) Urine Protein 3+ (NEGATIVE) H Urine Glucose (UA) Negative (NEGATIVE) Urine Ketones 1+ (NEGATIVE) H Urine Blood 1+ (NEGATIVE) H Urine Nitrite Negative (NEGATIVE) Urine Bilirubin Negative (NEGATIVE) Urine Urobilinogen Normal MG/DL (0.0-1.0) Urine Leukocyte Esterase Negative (NEGATIVE) Urine RBC 2-4 /HPF (0 - 0) H Urine WBC 0-2 /HPF (0 - 0) Urine Squamous Epithelial Cells Occasional /LPF Urine Bacteria Few /HPF (NONE) Urine Mucus Moderate /LPF (NONE/OCC) H Sodium Level 136 MMOL/L (136-145) Potassium Level 4.2 MMOL/L (3.5-5.1) Chloride Level 100 MMOL/L (98-107) Carbon Dioxide Level 28 MMOL/L (21-32) Anion Gap 8 mmol/L (5-15) Blood Urea Nitrogen 14 mg/dL (7-18) Creatinine 1.6 MG/DL (0.55-1.30) H Estimat Glomerular Filtration Rate 53.6 mL/min (>60) Glucose Level 139 MG/DL (74-106) H Calcium Level 8.6 MG/DL (8.5-10.1) Magnesium Level 2.3 MG/DL (1.8-2.4) Ferritin 515 NG/ML (8-388) H Total Bilirubin 0.5 MG/DL (0.2-1.0) Aspartate Amino Transf (AST/SGOT) 41 U/L (15-37) H Alanine Aminotransferase (ALT/SGPT) 56 U/L (12-78) Alkaline Phosphatase 54 U/L (46-116) Lactate Dehydrogenase 553 U/L (81-234) H Troponin I 0.000 ng/mL (0.000-0.056) C-Reactive Protein, Quantitative 13.1 mg/dL (0.00-0.90) H Pro-B-Type Natriuretic Peptide 51 pg/mL (0-125) Total Protein 8.4 G/DL (6.4-8.2) H Albumin 3.6 G/DL (3.4-5.0) Globulin 4.8 g/dL Albumin/Globulin Ratio 0.8 (1.0-2.7) L Lipase 121 U/L (73-393) Urine Opiates Screen Negative (NEGATIVE) Urine Barbiturates Screen Negative (NEGATIVE) Phencyclidine (PCP) Screen Negative (NEGATIVE) Urine Amphetamines Screen Negative (NEGATIVE) Urine Benzodiazepines Screen Negative (NEGATIVE) Urine Cocaine Screen Negative (NEGATIVE) Urine Marijuana (THC) Screen Positive (NEGATIVE) H Lactic Acid Level 1.50 mmol/L (0.4-2.0) Arterial Blood pH 7.479 (7.350-7.450) Arterial Blood Partial Pressure CO2 29.6 mmHg (35.0-45.0) L Arterial Blood Partial Pressure O2 72.6 mmHg (75.0-100.0) L Arterial Blood HCO3 21.5 mmol/L (22.0-26.0) L Arterial Blood Oxygen Saturation 94.7 % (95-100) L Arterial Blood Base Excess -0.9 (-2-2) Brayden Test Positive Triglycerides Level 57 MG/DL (30-150) Cholesterol Level 130 MG/DL (< 200) LDL Cholesterol 72 mg/dL (<100) HDL Cholesterol 43 MG/DL (40-60) Cholesterol/HDL Ratio 3.0 (3.3-4.4) L Thyroid Stimulating Hormone (TSH) 0.410 uiU/mL (0.358-3.740) Test 06/22/20 06:14 06/22/20 12:04 POC Whole Blood Glucose 189 MG/DL (74-106) H 157 MG/DL (74-106) H Current Medications Medications (Trade) Dose Ordered Sig/Jake Route PRN Reason Start Time Stop Time Status Last Admin Dose Admin Acetaminophen (Tylenol) 650 mg Q4H PRN ORAL Mild Pain (Pain Scale 1-3) 06/21/20 22:15 07/21/20 22:14 Acetaminophen (Tylenol) 650 mg Q4H PRN ORAL Temp >100.5 06/21/20 22:15 07/21/20 22:14 Albuterol Sulfate (Proventil MDI) 2 puff Q4H PRN INH Shortness of Breath 06/22/20 09:45 09/20/20 09:44 Ascorbic Acid (Vitamin C) 500 mg TWICE A DAY ORAL 06/22/20 18:00 07/22/20 17:59 Azithromycin 500 mg/Dextrose 275 ml @ 275 mls/hr Q24HRS IV 06/22/20 18:00 06/28/20 18:59 Ceftriaxone Sodium 1 gm/ Dextrose 55 ml @ 110 mls/hr Q24H IVPB 06/22/20 18:00 06/29/20 17:59 Dextrose (Dextrose 50%) 25 ml Q30M PRN IV Hypoglycemia 06/22/20 00:30 09/20/20 00:29 Dextrose (Dextrose 50%) 50 ml Q30M PRN IV Hypoglycemia 06/22/20 00:30 09/20/20 00:29 Enoxaparin Sodium (Lovenox) 40 mg Q24H SUBQ 06/22/20 00:00 09/20/20 00:00 06/21/20 23:10 Famotidine (Pepcid) 20 mg BID ORAL 06/22/20 10:00 09/20/20 09:59 06/22/20 09:59 Insulin Aspart (NovoLOG) BEFORE MEALS SUBQ 06/22/20 06:30 09/20/20 06:29 06/22/20 12:06 Magnesium Hydroxide (Mom) 30 ml HSPRN PRN ORAL Constipation 06/21/20 22:15 07/21/20 22:14 Ondansetron HCl (Zofran) 4 mg Q6H PRN IVP Nausea & Vomiting 06/21/20 22:15 07/21/20 22:14 Sodium Chloride 1,000 ml @ 75 mls/hr [id number] IVLG 06/21/20 23:15 07/21/20 23:14 06/22/20 12:07 Zinc Sulfate (Zinc Sulfate) 220 mg DAILY ORAL 06/23/20 09:00 09/21/20 08:59 Rm Mcgee MD Jun 22, 2020 15:53
--- NOTE | 2020-06-22 15:55 | Diagnostic Imaging Report ---
Indication: Chest pain Technique: One view of the chest Comparison: 09/15/2019 Findings: There are bilateral mid and lower lung interstitial and airspace opacities in a peribronchovascular distribution. The heart size is normal. The pleural spaces are clear Impression: Bilateral infiltrates, likely pneumonia. Correlate with clinical history and findings
[2020-06-22 16:00] VITALS: BP 130/86
[2020-06-22] MEDS: cefTRIAXone 1 GM in D5W 55 ML IVPB SCH (17:35)
[2020-06-22] MEDS: Ascorbic Acid 500mg tab ORAL SCH (17:35)
[2020-06-22] MEDS: Azithromycin 500 MG in D5W 275 ML IV SCH (18:21)
--- NOTE | 2020-06-22 18:30 | NUR ---
NURSE NOTES: The patient was seen in bed sitting up, eating dinner and watching Television. He was alert and oriented x4 with no complaint of dyspnea, shortness of breath or chest pain. The patient was receiving IV antibiotics per doctors orders and the IV was intact, patent with no signs of infiltration. The patients bed was in the lowest position with side rails up x2.
--- NOTE | 2020-06-22 18:30 | Consultation ---
DATE OF CONSULTATION: 06/22/2020 INFECTIOUS DISEASE CONSULTATION CONSULTING PHYSICIAN: Rm Mcgee MD. ATTENDING PHYSICIAN: Alphonso Cisse MD. REFERRING PHYSICIAN: Alphonso Cisse MD. REASON FOR CONSULTATION: COVID-19 infection with pneumonia, rule out bacterial pneumonia. CHIEF COMPLAINT: The patient's chief complaint coming into the hospital is pneumonia, hypoxia, COVID infection, GI symptoms including abdominal discomfort, epigastric pain, nausea, vomiting, diarrhea. HISTORY OF PRESENT ILLNESS: This is a very pleasant 60-year-old male who comes from home, who presents to [facility] with what looks like nausea, vomiting, epigastric pain, and diarrhea. The patient has what sounds like mild cough and congestion. CT scan of the abdomen and pelvis was done, which showed patchy ground-glass opacities consistent with infection and peripancreatic inflammatory changes, possible pancreatitis, however, lipase is normal. The patient was tested for COVID-19 infection and was positive. Infectious Disease consultation is requested. The patient currently is on Rocephin and azithromycin to cover community-acquired pneumonia. His saturation is stable and no indication for remdesivir or steroids. REVIEW OF SYSTEMS: CONSTITUTIONAL: As discussed, he had gastrointestinal symptoms of nausea, vomiting, and diarrhea. He had mild cough and congestion, but no fever or chills. CARDIAC: No chest pain. GASTROINTESTINAL: Nausea, vomiting, and diarrhea, and epigastric pain. GENITOURINARY: No dysuria or frequency. PULMONARY: Mild cough and congestion. SKIN: No rash. No chills, night sweats, or weight loss. PAST MEDICAL HISTORY: He has no history of diabetes, cancer, hypertension, or cardiac disease. ALLERGIES: Include penicillin. SOCIAL HISTORY: Negative for smoking, alcohol, or drug abuse. FAMILY HISTORY: Noncontributory. MEDICATIONS: Upon reviewing the MAR, he is on following medications. He is on zinc sulfate, azithromycin, Rocephin, ascorbic acid, famotidine, albuterol, insulin, IV fluids, enoxaparin, Zofran, and acetaminophen. He was given dexamethasone x1, pantoprazole. Outside medications, I do not believe he is on any medications prior to admission. PHYSICAL EXAMINATION: VITAL SIGNS: Temperature 98.1, pulse 83, respiratory rate , blood pressure 130/71. Saturation 98% on room air. GENERAL: Alert, responsive in no distress. HEAD AND NECK: Oral exam, no thrush. Eye exam, no icterus. Normocephalic. NECK: Supple. HEART: Regular. No gallop or murmur. LUNGS: Few bilateral rhonchi and rales. No respiratory distress. ABDOMEN: Soft. Positive bowel sounds. Nontender. Some discomfort, but no rebound. SKIN: No rash. MUSCULOSKELETAL: No effusions. Legs are without cellulitis. PERIPHERAL VASCULAR: No cyanosis. GENITOURINARY: No [place]. LINE SITES: Without phlebitis. NEUROLOGIC: General weakness, alert, responsive. Nonfocal. Alert and oriented. LABORATORY DATA: White count 5.5, hemoglobin 14.8. Creatinine 1.6. LFTs noted. Ferritin 515. LDH 553. C-reactive protein 13.1. Creatinine 1.6. White count 5.5, hemoglobin 14.8, lymphocytes are low. UA - 0 to 2 white cells. Lipase was negative. IMAGING: CT scan of the abdomen and pelvis showed patchy ground-glass opacities and also peripancreatic inflammatory changes. ASSESSMENT AND PLAN: 1. The patient has COVID-19 infection with pneumonia, rule out community-acquired pneumonia. The patient is on Rocephin and azithromycin. It is day #2 of antibiotics. No indication for remdesivir or steroids with saturation being 98% on room air. Continue Rocephin and azithromycin, day #2 again for community-acquired pneumonia. Check followup laboratories and chest x-ray. Monitor for hypoxia for COVID-19 infection with pneumonia. Continue COVID isolation. Proper PPEs worn. 2. The patient has no other significant past medical history. 3. Allergies to penicillin. 4. Social history is negative. 5. Family history is noncontributory. 6. MAR is noted. 7. Case was discussed with RN. 8. Continue treatment per primary consultants. 9. Case communicated with Dr. Cisse. 10. Orders were entered and noted. Rm Mcgee M.D. DR: SKINNY JOB#: [id number] CC:
--- NOTE | 2020-06-22 18:54 | NUR ---
NURSE HAND-OFF REPORT: Important Events on Shift:[Patient was changed to regular diet, IV rocephin, IV Cipro and had BM] Patient Status: [Stable and full code] Diet: [Regular & NPO passed midnight] Pending Orders: [Transfer to Med/Surg] Pending Results/Labs:[] Pending MD notification:[] Latest Vital Signs: Temperature 96.6 , Pulse 80 , B/P 130 /86 , Respiratory Rate 19 , O2 SAT 96 , Room Air, O2 Flow Rate . Vital Sign Comment: [] EKG Rhythm: Sinus Rhythm Rhythm change?: N MD Notified?: - MD Response: Latest Mcmillan Fall Score: 20 Fall Risk: Low Risk Safety Measures: Call light Within Reach, Bed Alarm Zone 1, Side Rails Side Rails x2, Bed position Low and Locked. Fall Precautions: Yellow Socks Patient Fall Education Report given to [Lyndon].
--- NOTE | 2020-06-22 19:15 | NUR ---
NURSE NOTES: Report received from YINA Mcgovern. Patient awake alert x4 and makes needs known with no SOB or acute distress. Call light and bed side table with in reach. Bed at lowest position locked with side rails up. Patient is on room air. lunchroom monitor intact. On COVID 19 isolation precautions. Will continue with plan of care.
[2020-06-22 20:00] VITALS: BP 118/80
[2020-06-22] MEDS ORDERED: dexAMETHasone 10mg/ml Inj IV SCH (20:00)
[2020-06-23] VITALS: BP 134/78
[2020-06-23] MEDS: Enoxaparin 40mg Inj SUBQ SCH
[2020-06-23 04:00] VITALS: BP 140/88
[2020-06-23 06:21] LABS: ALANINE AMINOTRANSFERASE 49 U/L (12-78); ALBUMIN 2.8 G/DL (3.4-5.0); ALBUMIN/GLOBULIN RATIO 0.7 (1.0-2.7); ALKALINE PHOSPHATASE 46 U/L (46-116); ANION GAP 8 mmol/L (5-15); ASPARTATE AMINO TRANSFERASE 34 U/L (15-37); BILIRUBIN,TOTAL 0.4 MG/DL (0.2-1.0); BLOOD UREA NITROGEN 14 mg/dL (7-18); CALCIUM 8.1 MG/DL (8.5-10.1); CARBON DIOXIDE 24 MMOL/L (21-32); CHLORIDE 102 MMOL/L (98-107); CREATININE 1.3 MG/DL (0.55-1.30); FERRITIN 445 NG/ML (8-388); POTASSIUM 4.3 MMOL/L (3.5-5.1); SODIUM 134 MMOL/L (136-145)
[2020-06-23] MEDS: NovoLOG Insulin Flexpen SUBQ SCH ×3 (06:30→16:30)
[2020-06-23 06:31] LABS: BASOPHILS % (AUTO) 0.4 % (0.0-2.0); EOSINOPHILS % (AUTO) 0.1 % (0.0-3.0); HEMATOCRIT 43.6 % (42.0-52.0); HEMOGLOBIN 14.9 G/DL (14.2-18.0); LYMPHOCYTES % (AUTO) 15.9 % (20.0-45.0); MEAN CORPUSCULAR VOLUME 89 FL (80-99); MONOCYTES % (AUTO) 2.8 % (1.0-10.0); NEUTROPHILS % (AUTO) 80.7 % (45.0-75.0); PLATELET COUNT 249 K/UL (150-450); RED BLOOD COUNT 4.87 M/UL (4.70-6.10); RED CELL DISTRIBUTION WIDTH 12.1 % (11.6-14.8); WHITE BLOOD COUNT 10.2 K/UL (4.8-10.8)
--- NOTE | 2020-06-23 07:24 | NUR ---
NURSE NOTES: Report received from YINA Krishnamurthy. Patient awake alert x4 and makes needs known. RA with no SOB or acute distress. Pt found sleeping. Bed low and locked, call light in reach and bed alarm on, cardiac monitor intact. On COVID 19 isolation precautions. Will continue with plan of care. IV on LAC20g, asymptomatic and intact.
--- NOTE | 2020-06-23 07:28 | NUR ---
NURSE HAND-OFF REPORT: Important Events on Shift:[Awaiting bed for transfer to med surg. NPO midnight for abd ultrasound in AM] Patient Status: [Stable alert oriented x4] Diet: [NPO] Pending Orders: [] Pending Results/Labs:[] Pending MD notification:[] Latest Vital Signs: Temperature 98.7 , Pulse 63 , B/P 140 /88 , Respiratory Rate 19 , O2 SAT 95 , Room Air, O2 Flow Rate . Vital Sign Comment: [] EKG Rhythm: Sinus Rhythm Rhythm change?: MD Notified?: - MD Response: Latest Mcmillan Fall Score: 20 Fall Risk: Low Risk Safety Measures: Call light Within Reach, Bed Alarm Zone 1, Side Rails Side Rails x2, Bed position Low and Locked. Fall Precautions: Yellow Socks Patient Fall Education Report given to [Parul BRAN].
[2020-06-23 08:00] VITALS: BP 142/82
[2020-06-23] MEDS ORDERED: Milk of Magnesia 30ml Ud ORAL PRN (08:00)
[2020-06-23] MEDS: Ascorbic Acid 500mg tab ORAL SCH ×2 (08:48→17:43)
[2020-06-23] MEDS: Zinc Sulfate 220mg ORAL SCH (08:48)
--- NOTE | 2020-06-23 08:50 | NUR ---
NURSE NOTES: Pt NPO but reported throwing up, and nausea. Pt given zofran for nausea and ice packs for abd pain.
--- NOTE | 2020-06-23 08:58 | NUR ---
CASE MANAGEMENT:REVIEW 06/23/20 SI: COVID PNEUMONIA (BILATERAL INFILTRATES) 99.5 88 18 142/82 95% ON RA IS: IV AZITHROMYCIN Q24 IV ROCEPHIN Q12 LOVENOX SQ Q24 IVF@75/HR ZINC PO QD VITAMIN C PO QD : TELEMETRY STATUS DCP: FROM HOME PLAN: DOWNGRADE TO MED/SURG F/U ON PENDING BLOOD CX ISOLATION
--- NOTE | 2020-06-23 09:36 | NUR ---
NURSE NOTES: US abd complete. pt return to regular diet.
--- NOTE | 2020-06-23 09:40 | NUR ---
RADIOLOGY DEPT., CHEST X-RAY DONE.-P.DYE
--- NOTE | 2020-06-23 10:27 | Pulmonology Progress Note ---
Subjective Allergies: Coded Allergies: PENICILLINS (Verified Allergy, Unknown, 10/23/15) Subjective remains on RA, afebrile, in isolation no signs of resp distress occasional dry cough abdominal US just completed Objective Last 24 Hour Vital Signs Date Time Temp Pulse Resp B/P (MAP) Pulse Ox O2 Delivery O2 Flow Rate FiO2 06/23/20 09:00 Room Air 06/23/20 08:00 98.1 88 18 142/82 (102) 95 06/23/20 04:00 98.7 63 19 140/88 (105) 95 06/23/20 03:33 98.8 06/23/20 00:00 99.5 72 19 134/78 (96) 96 06/22/20 21:00 Room Air 06/22/20 20:00 99.0 75 19 118/80 (93) 93 06/22/20 16:00 80 06/22/20 16:00 96.6 71 19 130/86 (101) 96 06/22/20 12:00 76 06/22/20 12:00 98.1 83 20 130/71 (90) 98 Intake and Output 06/22/20 06/23/20 19:00 07:00 Intake Total 1315 ml 250 ml Output Total 2200 ml Balance -885 ml 250 ml Intake Oral 490 ml 250 ml IV Total 825 ml Output Urine Total 2200 ml # Voids 6 3 Objective General Appearance: WD/WN, no apparent distress, alert Lines, tubes and drains: peripheral HEENT: normocephalic, atraumatic, anicteric, mucous membranes moist, PERRL Neck: non-tender, normal alignment, supple, normal inspection Respiratory/Chest: lungs clear, no respiratory distress, no accessory muscle use Cardiovascular/Chest: normal peripheral pulses, normal rate, regular rhythm Abdomen: normal bowel sounds, non tender, soft Extremities: non-tender, no calf tenderness Neurologic: jig and fixture repairer II-XII grossly normal, no motor/sensory deficits, alert, oriented x 3, responsive Musculoskeletal: normal muscle bulk Microbiology Date/Time Source Procedure Growth Status 06/21/20 18:15 Blood Blood Culture - Preliminary NO GROWTH AFTER 24 HOURS Resulted 06/21/20 18:00 Blood Blood Culture - Preliminary NO GROWTH AFTER 24 HOURS Resulted 06/21/20 15:49 Nasopharynx SARS-CoV-2 RdRp Gene Assay - Final Complete Laboratory Tests 06/22/20 12:04: POC Whole Blood Glucose 157H 06/22/20 16:48: POC Whole Blood Glucose 143H 06/23/20 04:00: Sodium Level 134L, Potassium Level 4.3, Chloride Level 102, Carbon Dioxide Level 24, Anion Gap 8, Blood Urea Nitrogen 14, Creatinine 1.3, Estimat Glomerular Filtration Rate > 60, Glucose Level 114H, Calcium Level 8.1L, Ferritin 445H, Total Bilirubin 0.4, Aspartate Amino Transf (AST/SGOT) 34, Alanine Aminotransferase (ALT/SGPT) 49, Alkaline Phosphatase 46, C-Reactive Protein, Quantitative 8.1H, Total Protein 7.1, Albumin 2.8L, Globulin 4.3, Album in/Globulin Ratio 0.7L, Lipase 169 06/23/20 05:39: POC Whole Blood Glucose 125H 06/23/20 06:21: White Blood Count 10.2#, Red Blood Count 4.87, Hemoglobin 14.9, Hematocrit 43.6, Mean Corpuscular Volume 89, Mean Corpuscular Hemoglobin 30.6, Mean Corpuscular Hemoglobin Concent 34.1, Red Cell Distribution Width 12.1, Platelet Count 249, Mean Platelet Volume 6.1L, Neutrophils (%) (Auto) 80.7H, Lymphocytes (%) (Auto) 15.9L, Monocytes (%) (Auto) 2.8, Eosinophils (%) (Auto) 0.1, Basophils (%) (Auto) 0.4, Hemoglobin A1c 7.2H, Interleukin 6 (IL-6) [Pending] Current Medications Medications (Trade) Dose Ordered Sig/Jake Route PRN Reason Start Time Stop Time Status Last Admin Dose Admin Acetaminophen (Tylenol) 650 mg Q4H PRN ORAL Temp >100.5 06/23/20 03:00 07/23/20 02:59 06/23/20 03:03 Acetaminophen (Tylenol) 650 mg Q4H PRN ORAL Mild Pain (Pain Scale 1-3) 06/23/20 08:00 07/23/20 07:59 Albuterol Sulfate (Proventil MDI) 2 puff Q4H PRN INH Shortness of Breath 06/22/20 09:45 09/20/20 09:44 Ascorbic Acid (Vitamin C) 500 mg TWICE A DAY ORAL 06/22/20 18:00 07/22/20 17:59 06/23/20 08:48 Azithromycin 500 mg/Dextrose 275 ml @ 275 mls/hr Q24HRS IV 06/22/20 18:00 06/28/20 18:59 06/22/20 18:21 Ceftriaxone Sodium 1 gm/ Dextrose 55 ml @ 110 mls/hr Q24H IVPB 06/22/20 18:00 06/29/20 17:59 06/22/20 17:35 Dextrose (Dextrose 50%) 25 ml Q30M PRN IV Hypoglycemia 06/22/20 00:30 09/20/20 00:29 Dextrose (Dextrose 50%) 50 ml Q30M PRN IV Hypoglycemia 06/22/20 00:30 09/20/20 00:29 Enoxaparin Sodium (Lovenox) 40 mg Q24H SUBQ 06/22/20 00:00 09/20/20 00:00 06/23/20 00:00 Famotidine (Pepcid) 20 mg BID ORAL 06/22/20 10:00 09/20/20 09:59 06/23/20 08:48 Insulin Aspart (NovoLOG) BEFORE MEALS SUBQ 06/22/20 06:30 09/20/20 06:29 06/22/20 17:05 Magnesium Hydroxide (Mom) 30 ml HSPRN PRN ORAL Constipation 06/23/20 08:00 07/23/20 07:59 Ondansetron HCl (Zofran) 4 mg Q6H PRN IVP Nausea & Vomiting 06/23/20 08:00 07/23/20 07:59 06/23/20 10:18 Sodium Chloride 1,000 ml @ 75 mls/hr [id number] IVLG 06/21/20 23:15 07/21/20 23:14 06/22/20 12:07 Zinc Sulfate (Zinc Sulfate) 220 mg DAILY ORAL 06/23/20 09:00 09/21/20 08:59 06/23/20 08:48 Assessment/Plan Assessment/Plan ASSESSMENT COVID 19 infection Possible PNA Abdominal pain with n/v and diarrhea -possible due to COVID infection ERNST Proteinuria Hyperglycemia Cholelithiasics-per imaging PLAN OF CARE tele isolation on Azithromycin and ceftriaxone ID eval appreciated pulse ox remains stable on RA, titrate to keep sat > 90% MDI Proventil prn monitor respiratory status, if becomes hypoxic will qualify for Remdesivivr no need for steroids, given stable pulse ox on RA a/c with Lovenox vit C and zinc fup with inflammatory markers: ferritin and CRP with small trend down, IL6 pending fup with CXR today HgA1c - 7.2 BS management with SSI monitor renal parameters, lytes lipase WNL, AST minimally elevated CT A/P noted, doubt infectious process abd pain with n/v/diarrhea ( which subsided) possibly due to COVID infection and possible marijuana use abd US just completed; fup with report supportive care pain management GI prophylaxis Thank you for a consult! case discussed and evaluated by supervising physician 1. Patchy ground-glass opacities identified within the visualized lung bases. Findings are consistent with an acute inflammatory/infectious process, including COVID-19 infection. Correlate. 2. Mild peripancreatic inflammatory changes which can be seen with pancreatitis. Correlate with amylase and lipase levels. No organized fluid collection identified. 3. Contracted gallbladder containing calcified gallstones. Tasia Friedman NP Jun 23, 2020 10:27
--- NOTE | 2020-06-23 11:00 | NUR ---
NURSE NOTES: Dr Cisse notified of Pt n/v. no new orders.
[2020-06-23 12:00] VITALS: BP 142/70
--- NOTE | 2020-06-23 14:25 | NUR ---
NURSE NOTES: Per Dr pretty Shen called to cancel US of Abd, ok for regular diet. advance as tolerated. order acknowledged and carried out.
[2020-06-23 16:00] VITALS: BP 147/65
[2020-06-23] MEDS: Azithromycin 500 MG in D5W 275 ML IV SCH (16:53)
--- NOTE | 2020-06-23 17:18 | Diagnostic Imaging Report ---
Indication: Cough Technique: One view of the chest Comparison: 06/21/2020 Findings: Bilateral infiltrates have increased in the interim. The heart size is normal. The pleural spaces remain clear Impression: Worsening bilateral infiltrates
--- NOTE | 2020-06-23 17:29 | General Progress Note ---
Subjective Constitutional: Reports: weakness HEENT: Reports: no symptoms Cardiovascular: Reports: no symptoms Respiratory: Reports: no symptoms Gastrointestinal/Abdominal: Reports: nausea, poor appetite, vomiting Genitourinary: Reports: no symptoms Neurologic/Psychiatric: Reports: no symptoms Endocrine: Reports: no symptoms Allergies: Coded Allergies: PENICILLINS (Verified Allergy, Unknown, 10/23/15) Objective Last 24 Hour Vital Signs Date Time Temp Pulse Resp B/P (MAP) Pulse Ox O2 Delivery O2 Flow Rate FiO2 06/23/20 16:00 99.0 94 20 147/65 (92) 94 06/23/20 12:00 97.7 98 21 142/70 (94) 96 06/23/20 09:00 Room Air 06/23/20 08:00 98.1 88 18 142/82 (102) 95 06/23/20 04:00 98.7 63 19 140/88 (105) 95 06/23/20 03:33 98.8 06/23/20 00:00 99.5 72 19 134/78 (96) 96 06/22/20 21:00 Room Air 06/22/20 20:00 99.0 75 19 118/80 (93) 93 Intake and Output 06/22/20 06/23/20 19:00 07:00 Intake Total 1315 ml 250 ml Output Total 2200 ml Balance -885 ml 250 ml Intake Oral 490 ml 250 ml IV Total 825 ml Output Urine Total 2200 ml # Voids 6 3 Laboratory Tests 06/23/20 04:00: Sodium Level 134L, Potassium Level 4.3, Chloride Level 102, Carbon Dioxide Level 24, Anion Gap 8, Blood Urea Nitrogen 14, Creatinine 1.3, Estimat Glomerular Filtration Rate > 60, Glucose Level 114H, Calcium Level 8.1L, Ferritin 445H, Total Bilirubin 0.4, Aspartate Amino Transf (AST/SGOT) 34, Alanine Aminotransferase (ALT/SGPT) 49, Alkaline Phosphatase 46, C-Reactive Protein, Quantitative 8.1H, Total Protein 7.1, Albumin 2.8L, Globulin 4.3, Albumin/Globulin Ratio 0.7L, Lipase 169 06/23/20 05:39: POC Whole Blood Glucose 125H 06/23/20 06:21: White Blood Count 10.2#, Red Blood Count 4.87, Hemoglobin 14.9, Hematocrit 43.6, Mean Corpuscular Volume 89, Mean Corpuscular Hemoglobin 30.6, Mean Corpuscular Hemoglobin Concent 34.1, Red Cell Distribution Width 12.1, Platelet Count 249, Mean Platelet Volume 6.1L, Neutrophils (%) (Auto) 80.7H, Lymphocytes (%) (Auto) 15.9L, Monocytes (%) (Auto) 2.8, Eosinophils (%) (Auto) 0.1, Basophils (%) (Auto) 0.4, Hemoglobin A1c 7.2H, Interleukin 6 (IL-6) [Pending] 06/23/20 11:40: POC Whole Blood Glucose [Pending] 06/23/20 16:27: POC Whole Blood Glucose [Pending] Height (Feet): 5 Height (Inches): 9.00 Weight (Pounds): 190 General Appearance: WD/WN, no apparent distress EENT: normal ENT inspection Neck: normal alignment Cardiovascular: regular rhythm Respiratory/Chest: lungs clear Abdomen: non tender Edema: no edema noted Arm (L), no edema noted Arm (R), no edema noted Leg (L), no edema noted Leg (R), no edema noted Pedal (L), no edema noted Pedal (R), no edema noted Generalized Assessment/Plan Problem List: (1) Gallstones ICD Codes: K80.20 - Calculus of gallbladder without cholecystitis without obstruction SNOMED: 379322247 (2) Abnormal LFTs ICD Codes: R94.5 - Abnormal results of liver function studies SNOMED: 959237120 (3) Diarrhea ICD Codes: R19.7 - Diarrhea, unspecified SNOMED: 44841568 (4) Emesis ICD Codes: R11.10 - Vomiting, unspecified SNOMED: 135331188 (5) COVID-19 ICD Codes: U07.1 - COVID-19 SNOMED: 475420332 Assessment/Plan: Sat normal, symptomatic care, monitor O2 sat, US deferred due to isolation Alphonso Cisse MD Jun 23, 2020 17:29
[2020-06-23] MEDS: cefTRIAXone 1 GM in D5W 55 ML IVPB SCH (17:44)
--- NOTE | 2020-06-23 19:51 | NUR ---
NURSE HAND-OFF REPORT: Important Events on Shift: Pt N/V, US of abd cancelled, Md aware Patient Status: fc. stable Diet: regular diet as tolerated Pending Orders: [facility] patient Pending Results/Labs: Pending MD notification: Latest Vital Signs: Temperature 99.0 , Pulse 94 , B/P 147 /65 , Respiratory Rate 20 , O2 SAT 94 , Room Air, O2 Flow Rate . Vital Sign Comment: EKG Rhythm: Sinus Rhythm Rhythm change?: MD Notified?: - MD Response: Latest Mcmillan Fall Score: 20 Fall Risk: Low Risk Safety Measures: Call light Within Reach, Bed Alarm Zone 1, Side Rails Side Rails x3, Bed position Low and Locked. Fall Precautions: Yellow Socks Patient Fall Education Report given to YINA Barker.
[2020-06-23 20:00] VITALS: BP 143/76
--- NOTE | 2020-06-23 20:00 | NUR ---
NURSE NOTES: Report received from YINA Teran. Patient awake alert x4 and makes needs known. No SOB or acute distress noted. No pain reported at this time but patient is experiencing nausea at this time. IV site is left hand 22G running 75ml/hr of NS as ordered; patent flushed. No erythema or bleeding noted. Call light and belonging with in reach. Bed side table with in reach. Bed at lowest position locked with side rails up. Patient ambulates with steady gait but was educated to call before getting up. Patient is on room air. On COVID 19 isolation precautions. Will continue with plan of care.
--- NOTE | 2020-06-23 22:00 | NUR ---
NURSE NOTES: Patient is requesting brake from IV fluid because he was up every 5 mins to the restroom with diarrhea.
[2020-06-24] VITALS: BP 129/65
[2020-06-24] MEDS: Enoxaparin 40mg Inj SUBQ SCH (00:11)
[2020-06-24 04:00] VITALS: BP 131/61
[2020-06-24] MEDS: NovoLOG Insulin Flexpen SUBQ SCH ×2 (06:30→11:30)
[2020-06-24 06:33] LABS: HEMATOCRIT 43.9 % (42.0-52.0); HEMOGLOBIN 14.6 G/DL (14.2-18.0); MEAN CORPUSCULAR VOLUME 90 FL (80-99); PLATELET COUNT 265 K/UL (150-450); RED BLOOD COUNT 4.88 M/UL (4.70-6.10); RED CELL DISTRIBUTION WIDTH 12.1 % (11.6-14.8); WHITE BLOOD COUNT 10.2 K/UL (4.8-10.8)
[2020-06-24 06:59] LABS: ALBUMIN 2.6 G/DL (3.4-5.0); ALBUMIN/GLOBULIN RATIO 0.6 (1.0-2.7); BILIRUBIN,TOTAL 0.5 MG/DL (0.2-1.0); CALCIUM 8.4 MG/DL (8.5-10.1); CREATININE 1.6 MG/DL (0.55-1.30); POTASSIUM 4.8 MMOL/L (3.5-5.1)
--- NOTE | 2020-06-24 07:53 | NUR ---
NURSE HAND-OFF REPORT: Important Events on Shift: Pt has order to be admitted to Med-surg. Patient Status: No acute distress Diet: Regular Pending Orders: Pending Results/Labs: Pending MD notification: Latest Vital Signs: Temperature 98.1 , Pulse 76 , B/P 131 /61 , Respiratory Rate 20 , O2 SAT 92 , Room Air, O2 Flow Rate . Vital Sign Comment: EKG Rhythm: Sinus Rhythm Rhythm change?: MD Notified?: - MD Response: Latest Mcmillan Fall Score: 20 Fall Risk: Low Risk Safety Measures: Call light Within Reach, Bed Alarm Zone 1, Side Rails Side Rails x3, Bed position Low and Locked. Fall Precautions: Yellow Socks Patient Fall Education Report given to Giulia BRAN.
--- NOTE | 2020-06-24 08:23 | NUR ---
NURSE NOTES: pt in bed about to have breakfast, awake and alert. Bed is locked and in lowest position. Call light within reach. will collect BM sample. Will continue to monitor pt. Addendum: 06/24/20 at 0842 by Giulia Giron RN NURSE NOTES: pt in bed about to have breakfast, awake and alert. 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 Bed is locked and in lowest position. Call light within reach. will collect BM sample. Will continue to monitor pt.
--- NOTE | 2020-06-24 08:31 | Pulmonology Progress Note ---
Subjective Allergies: Coded Allergies: PENICILLINS (Verified Allergy, Unknown, 10/23/15) Subjective remains on RA, afebrile, in isolation no signs of resp distress no CP CXR 06/23 - Worsening bilateral infiltrates occasional dry cough still diarrhea creat up to 1.6 this am Objective Last 24 Hour Vital Signs Date Time Temp Pulse Resp B/P (MAP) Pulse Ox O2 Delivery O2 Flow Rate FiO2 06/24/20 08:19 Room Air 06/24/20 04:00 98.1 76 20 131/61 (84) 92 06/24/20 01:05 99.0 06/24/20 00:00 100.8 89 20 129/65 (86) 94 06/23/20 21:00 Room Air 06/23/20 20:00 97.8 92 21 143/76 (98) 92 06/23/20 16:00 99.0 94 20 147/65 (92) 94 06/23/20 12:00 97.7 98 21 142/70 (94) 96 06/23/20 09:00 Room Air Intake and Output 06/23/20 06/24/20 19:00 07:00 Intake Total 700 ml 200 ml Output Total 650 ml Balance 700 ml -450 ml Intake Oral 700 ml 200 ml Output Urine Total 650 ml # Voids 4 3 Objective General Appearance: WD/WN, no apparent distress, alert Lines, tubes and drains: peripheral HEENT: normocephalic, atraumatic, anicteric, mucous membranes moist, PERRL Neck: non-tender, normal alignment, supple, normal inspection Respiratory/Chest: lungs clear, no respiratory distress, no accessory muscle use Cardiovascular/Chest: normal peripheral pulses, normal rate, regular rhythm Abdomen: normal bowel sounds, non tender, soft Extremities: non-tender, no calf tenderness 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, no motor/sensory deficits, alert, oriented x 3, responsive Musculoskeletal: normal muscle bulk Microbiology Date/Time Source Procedure Growth Status 06/21/20 18:15 Blood Blood Culture - Preliminary NO GROWTH AFTER 48 HOURS Resulted 06/21/20 18:00 Blood Blood Culture - Preliminary NO GROWTH AFTER 48 HOURS Resulted 06/21/20 15:49 Nasopharynx SARS-CoV-2 RdRp Gene Assay - Final Complete Laboratory Tests 06/23/20 11:40: POC Whole Blood Glucose [Pending] 06/23/20 16:27: POC Whole Blood Glucose [Pending] 06/24/20 05:40: White Blood Count 10.2, Red Blood Count 4.88, Hemoglobin 14.6, Hematocrit 43.9, Mean Corpuscular Volume 90, Mean Corpuscular Hemoglobin 30.0, Mean Corpuscular Hemoglobin Concent 33.3, Red Cell Distribution Width 12.1, Platelet Count 265, Mean Platelet Volume 5.8L, Neutrophils (%) (Auto) , Lymphocytes (%) (Auto) , Monocytes (%) (Auto) , Eosinophils (%) (Auto) , Basophils (%) (Auto) , Neut rophils % (Manual) [Pending], Lymphocytes % (Manual) [Pending], Platelet Estimate [Pending], Platelet Morphology [Pending], Sodium Level 137, Potassium Level 4.8, Chloride Level 102, Carbon Dioxide Level 28, Anion Gap 7, Blood Urea Nitrogen 12, Creatinine 1.6H, Estimat Glomerular Filtration Rate 53.6, Glucose Level 131H, Calcium Level 8.4L, Total Bilirubin 0.5, Aspartate Amino Transf (AST/SGOT) 30, Alanine Aminotransferase (ALT/SGPT) 45, Alkaline Phosphatase 46, Total Protein 7.2, Albumin 2.6L, Globulin 4.6, Albumin/Globulin Ratio 0.6L, Lipase 114 06/24/20 05:51: POC Whole Blood Glucose 126H Current Medications Medications (Trade) Dose Ordered Sig/Jake Route PRN Reason Start Time Stop Time Status Last Admin Dose Admin Acetaminophen (Tylenol) 650 mg Q4H PRN ORAL Temp >100.5 06/23/20 03:00 07/23/20 02:59 06/24/20 00:35 Acetaminophen (Tylenol) 650 mg Q4H PRN ORAL Mild Pain (Pain Scale 1-3) 06/23/20 08:00 07/23/20 07:59 Albuterol Sulfate (Proventil MDI) 2 puff Q4H PRN INH Shortness of Breath 06/22/20 09:45 09/20/20 09:44 Ascorbic Acid (Vitamin C) 500 mg TWICE A DAY ORAL 06/22/20 18:00 07/22/20 17:59 06/23/20 17:43 Azithromycin 500 mg/Dextrose 275 ml @ 275 mls/hr Q24HRS IV 06/22/20 18:00 06/28/20 18:59 06/23/20 16:53 Ceftriaxone Sodium 1 gm/ Dextrose 55 ml @ 110 mls/hr Q24H IVPB 06/22/20 18:00 06/29/20 17:59 06/23/20 17:44 Dextrose (Dextrose 50%) 25 ml Q30M PRN IV Hypoglycemia 06/22/20 00:30 09/20/20 00:29 Dextrose (Dextrose 50%) 50 ml Q30M PRN IV Hypoglycemia 06/22/20 00:30 09/20/20 00:29 Enoxaparin Sodium (Lovenox) 40 mg Q24H SUBQ 06/22/20 00:00 09/20/20 00:00 06/24/20 00:11 Famotidine (Pepcid) 20 mg BID ORAL 06/22/20 10:00 09/20/20 09:59 06/23/20 17:43 Insulin Aspart (NovoLOG) BEFORE MEALS SUBQ 06/22/20 06:30 09/20/20 06:29 06/22/20 17:05 Magnesium Hydroxide (Mom) 30 ml HSPRN PRN ORAL Constipation 06/23/20 08:00 07/23/20 07:59 Ondansetron HCl (Zofran) 4 mg Q6H PRN IVP Nausea & Vomiting 06/23/20 08:00 07/23/20 07:59 06/24/20 00:11 Sodium Chloride 1,000 ml @ 75 mls/hr [id number] IVLG 06/21/20 23:15 07/21/20 23:14 06/24/20 04:31 Zinc Sulfate (Zinc Sulfate) 220 mg DAILY ORAL 06/23/20 09:00 09/21/20 08:59 06/23/20 08:48 Assessment/Plan Assessment/Plan ASSESSMENT COVID 19 infection Possible PNA Abdominal pain with n/v and diarrhea -possible due to COVID infection ERNST ? on CKD Proteinuria Hyperglycemia Cholelithiasis -per imaging PLAN OF CARE tele isolation on Azithromycin and ceftriaxone ID follows pulse ox remains stable on RA, titrate to keep sat > 90% MDI Proventil prn monitor respiratory status, if becomes hypoxic will qualify for Remdesivivr no need for steroids, given stable pulse ox on RA a/c with Lovenox vit C and zinc fup with inflammatory markers: ferritin and CRP with small trend down, IL6 pending CXR 06/23 Worsening bilateral infiltrates HgA1c - 7.2 BS management with SSI monitor renal parameters, lytes lipase WNL, AST minimally elevated CT A/P noted, doubt infectious process abd pain with n/v/diarrhea ( which subsided) possibly due to COVID infection and possible marijuana use check stool for C dif abd US done 06/23; fup with report supportive care pain management GI prophylaxis can go to [facility] floor Thank you for a consult! case discussed and evaluated by supervising physician 1. Patchy ground-glass opacities identified within the visualized lung bases. Findings are consistent with an acute inflammatory/infectious process, including COVID-19 infection. Correlate. 2. Mild peripancreatic inflammatory changes which can be seen with pancreatitis. Correlate with amylase and lipase levels. No organized fluid collection identified. 3. Contracted gallbladder containing calcified gallstones. Tasia Friedman NP Jun 24, 2020 08:31
[2020-06-24 09:00] VITALS: BP 151/104
[2020-06-24] MEDS: Ascorbic Acid 500mg tab ORAL SCH (09:11)
[2020-06-24] MEDS: Zinc Sulfate 220mg ORAL SCH (09:11)
[2020-06-24 12:00] VITALS: BP 145/82
[2020-06-24] MEDS ORDERED: ZITHROMAX500 MG ORAL (12:27)
[2020-06-24] MEDS ORDERED: ASPIRIN EC325 MG ORAL (12:27)
[2020-06-24] MEDS ORDERED: Tubing IV Secondary IV ONE (16:59)
--- NOTE | 2020-06-24 22:44 | Discharge Summary ---
DATE OF ADMISSION: 06/21/2020 DATE OF DISCHARGE: 06/24/2020 PERTINENT HISTORY: The patient admitted with positive test for COVID-19 and abdominal complaints of some epigastric pain, nausea, vomiting, and diarrhea. No shortness of breath. PERTINENT PHYSICAL FINDINGS: LUNGS: Clear. HEART: Regular rhythm. ABDOMEN: Soft. No focal tenderness. EXTREMITIES: No edema. COURSE IN THE HOSPITAL: The patient had GI symptoms likely secondary to COVID-19. There was a CT scan showing peripancreatic inflammation, contracted gallbladder containing calcified gallstones, but he had no clinical cholecystitis. He also had some interstitial lung base infiltrates on CT, but no shortness of breath with minimal cough. The patient was observed and there was a gradual improvement of his GI symptoms. He was given supportive care. He got one dose of dexamethasone, but he really did not have any hypoxemia or need to continue dexamethasone at this time. His symptoms improved on the day of discharge, he was able to tolerate his diet without nausea or vomiting. There was no shortness of breath or hypoxemia, and he was discharged home in improved condition. He was given information about self isolating and to seek medical attention should he get short of breath or worsening symptoms. FINAL DIAGNOSES: 1. COVID-19 pneumonia. 2. GI symptoms of nausea, vomiting, and diarrhea likely secondary to COVID-19. 3. Gallstones, but no clinical cholecystitis. 4. Mild dehydration with elevation of creatinine of 1.6. DISCHARGE DISPOSITION: Home on a regular diet. DISCHARGE MEDICATIONS: Aspirin 325 mg daily and Zithromax 500 mg p.o. daily for four days. FOLLOWUP: He will follow up with his primary care physician. Alphonso Cisse M.D. DR: MELVIN JOB#: [id number] CC:
== END 2020-06-24 17:00 | disposition home or self-care (01) | DRG 137 ==
LOC: EMR 18:30 → 2E 20:45 → EDBEDREQ 21:19 → UNDODISIN 22:17
DX: U07.1 COVID-19 (principal); J12.89 Other viral pneumonia; N17.9 Acute kidney failure, unspecified; K80.20 Calculus of gallbladder without cholecystitis without obstruction; Z88.0 Allergy status to penicillin; R11.2 Nausea with vomiting, unspecified; E86.0 Dehydration; N18.9 Chronic kidney disease, unspecified
CPT/HCPCS: 36415; 71045; 74176; 80053; 80061; 80307; 81003; 82728; 82803; 82962; 83036; 83520; 83605; 83615; 83690; 83735; 83880; 84443; 84484; 85007; 85025; 85379; 85610; 85730; 86140; 87040; 93005; 96365; 96368; 96375; 99285; J1815; J2405; J7030; U0002